=== PATIENT | male | born 1930 | race Caucasian/White ===

== ENCOUNTER 2016-11-19 10:08 | Emergency (ER) | payer MEDICARE, OTHER ==
[2016-06-30 11:01] VITALS: BMI 25.3
[~2016-11-19 10:08] MED LIST: ADOXA100 MG PO; ASPIRIN81 MG PO; B-12 DOTS500 MCG; BAYER CHEWABLE81 MG PO; CO Q-10200 MG PO; COLACE100 MG PO; COZAAR50 MG PO; EFFEXOR75 MG PO; FERREX 150 PLUS1 CAP PO; FLAGYL 500500 MG/100 PO; FLAXSEED OIL1000 MG PO; FLOMAX0.4 MG PO; GLIMEPIRIDE1 MG PO; GLIMEPIRIDE4 MG PO; HCTZ25 MG PO; HYDROCHLOROTH12.5 M1 PO; K-DUR20 MEQ PO; K-TAB10 MEQ PO; LASIX40 MG PO; LEVAQUIN 5500 MG/100 PO; NORMODYNE / TR100 MG PO; NORVASC10 MG PO; PLAVIX75 MG PO; POTASSIUM99 M1 PO; PRAVACHOL80 MG PO; PREDNISONE5 MG PO; PRILOSEC20 MG PO; PROTONIX40 MG PO; RESTORIL15 MG PO; ROCALTROL0.25 MCG PO; SILVADENE20 GM TP; VALIUM10 MG PO; VITAMIN B-1250 MCG; XANAX0.25 MG PO
[2016-11-20] MEDS ORDERED: COZAAR50 MG PO (10:31)
[2016-11-20] MEDS ORDERED: GLIMEPIRIDE2 MG PO (10:32)
[2016-11-20] MEDS ORDERED: CARDURA4 MG PO (10:34)
[2016-11-20] MEDS ORDERED: CATAPRES0.1 MG PO (10:38)
[2016-11-20] MEDS ORDERED: BAYER CHEWABLE81 MG PO (10:41)
[2016-11-20] MEDS ORDERED: JARDIANCE10 MG PO (10:41)
== END 2016-11-19 12:22 | disposition home or self-care (01) ==
LOC: D.ER 10:08
DX: S41.111A Laceration without foreign body of right upper arm, initial encounter (principal); W16.212A Fall in (into) filled bathtub causing other injury, initial encounter; Y93.89 Activity, other specified; Y92.019 Unspecified place in single-family (private) house as the place of occurrence of the external cause; S93.402A Sprain of unspecified ligament of left ankle, initial encounter; S83.92XA Sprain of unspecified site of left knee, initial encounter; I10 Essential (primary) hypertension; E11.9 Type 2 diabetes mellitus without complications; Z86.73 Personal history of transient ischemic attack (TIA), and cerebral infarction without residual deficits

== ENCOUNTER 2016-11-19 15:09 | Inpatient (IN) | payer MEDICARE, OTHER ==
[~2016-11-19] VITALS: Ht 185.4 cm; Wt 93.4 kg
--- NOTE | ~2016-11-19 | DS ---
PATIENT:JUDY MIN :[birth year] MEDICAL RECORD: [id number] DISCHARGE SUMMARY ADMISSION DATE: 11/20/16 DISCHARGE DATE: 11/23/16 ADMITTING DIAGNOSES: Syncope, diabetes, [id number] kidney disease. CONSULTANTS: Avtar Loja, nephrology; Dr. Quezada, cardiology. HOSPITAL COURSE: This is an 85-year-old white male, patient of Dr. Serra, admitted with diagnoses as outlined above. Details are well-outlined in the history of the present illness, H&P. All events, lab procedures, diagnostic testing are well documented in the records. The patient was admitted, Torres catheter placed, put on strict bed rest, Protonix for GI prophylaxis, scuds for DVT prophylaxis. He was placed on electrolyte protocol, renal diet. Echocardiogram was done. EF is 55%, [id number] aortic stenosis, mitral annular calcification, mild mitral regurg, mild tricuspid regurg. Orthostatic blood pressures were done and were okay and satisfactory. No significant drops. Initially, several blood pressure medicines put on hold do to include his ARB, HCTZ, and Norvasc. He then started climbing on the blood pressures and getting hypertensive, Dr. Loja made further adjustments. He added Apresoline, restarted the losartan, ARB and kept the Norvasc and hydrochlorothiazide discontinued. His UA was bland. No proteinuria. For diabetes mellitus, was put on Accu-Chek blood sugars and sliding scale insulin. For hyperlipidemia his statin was continued. CPK found to be normal. Stool guaiacs were negative. Hemoglobin closely followed. There was one drop of hemoglobin 6.7, we felt was erroneous, we rechecked it immediately and came back at 8.5 and then today he is 8.6. Again, stool guaiacs were negative. He is stable for dismissal home from all standpoints. His serum creatinine is at baseline. The patient is afebrile, pulse 71, respirations 16, blood pressure 165/71, O2 sat 98%. White count 8, hemoglobin 8.6, platelets are 180. Sodium 145, potassium 3.8, chloride 108, CO2 of 30, BUN 30, serum creatinine 1.8, glucose is 136, calcium is 8, phosphorus 3. Special send out labs per renal showed free kappa chains 24.88 elevated, free lambda were normal and free kappa lambda 1.9, elevated. We will defer that to nephrology. His ESR was found to be 19, renal ultrasound showed chronic disease. No obstruction or hydro. The patient admitted to Dr. Loja that he really had not been taking enough water at home and all disciplines felt that he was dehydrated when he came in. He will be dismissed home. Please refer to med rec. His new medicine is hydralazine 50 one p.o. b.i.d. He will be continued on his losartan, his Cardura and I am just giving his cardiac meds, his Plavix was restarted. Discontinued meds includes his Norvasc, potassium, hydrochlorothiazide and Catapres. DIAGNOSES: 1. Syncope due to dehydration, resolved. 2. Diabetes mellitus type 2 with hyperglycemia. 3. Uncontrolled hypertension improved. 4. Uznjg-nb-fpuqfxv kidney disease. He is at baseline chronic kidney disease stage III. 5. Anemia of chronic renal disease. DISCHARGE SUMMARY REPORT [id number] JUDY MIN 6. Hypoalbuminemia, 2.9 albumin, bland UA with no proteinuria. 7. Hyperlipidemia. Greater than 30 minutes was spent on this discharge. TRANSINT:[id number] Voice Confirmation ID: [id number] DOCUMENT ID: [id number] Dictated By: HALIE VELASCO RN I have interviewed/examined the above patient and agree with these documented findings. DIMITRI DAUGHERTY MD CC: [id number] DICTATION DATE: 11/23/16 135 EGG PROCESSING SUPERVISOR: 11/24/16 0602 DIS IN 11/23/[address] [facility] [address] [place] [address]
[2016-11-19 16:10] LABS: BASOPHILS 0.1 % (0-2); EOSINOPHILS 0.1 % (0-7); HEMATOCRIT 31.6 % (42.0-54.0); HEMOGLOBIN 10.3 g/dL (13.5-17.5); IMMATURE GRANULOCYTES 0.4 % (0-5); MCH 29.9 pg (26.0-34.0); MCHC 32.6 g/dL (31.0-37.0); MCV 91.9 fL (80.0-100.0); MEAN PLATELET VOLUME 9.4 fL (7.4-10.4); MONOCYTES 8.3 % (2-11); NEUTROPHILS 86.1 % (40-80); PLATELET COUNT 186 10x3/uL (130-400); RBC 3.44 10x6/uL (4.20-6.10); RDW 14.2 % (11.5-14.5)
[2016-11-19 16:30] LABS: ALBUMIN 2.9 g/dL (3.4-5.0); ALKALINE PHOSPHATASE 73 U/L (46-116); ALT (SGPT) 15 U/L (10-68); BILIRUBIN - TOTAL 0.63 mg/dL (0.2-1.3); CALC OSMOLALITY 298 mosm/kg (275-300); CALCIUM 8.3 mg/dL (8.5-10.1); CARBON DIOXIDE 30.9 mmol/L (21.0-32.0); CHLORIDE - SERUM 104 mmol/L (98-107); CREATININE - SERUM 3.1 mg/dL (0.6-1.3); POTASSIUM - SERUM 3.8 mmol/L (3.5-5.1); PROTEIN - SERUM 5.5 g/dL (6.4-8.2); SODIUM 140 mmol/L (136-145); UREA NITROGEN 53 mg/dL (7-18); eGFR NON AFRICAN AMERICAN 20 mL/min (90-120)
[2016-11-19 16:39] LABS: GLUCOSE 206 mg/dL (74-106)
[2016-11-19 16:42] LABS: CKMB 1.3 U/L (0.0-3.6); CREATINE KINASE 86 UL (21-232)
[2016-11-19 16:46] LABS: TROPONIN-I 0.017 ng/mL (0.000-0.060)
--- NOTE | 2016-11-19 21:20 | NUR ---
RECEIVED PT TO ROOM 2113 ALERT O X3. PT TRANSFERRED SELF FROM STRETCHER TO BED. ASSESS AND HISTORY COMPLETE. PT UNABLE TO ACCURATELY GIVE HOME MED LIST AT THIS TIME. BRENDA (PT'S GIRLFRIEND) WILL BE BRINGING AN UP TO DATE LIST IN THE AM.
[2016-11-19 21:46] VITALS: BP 166/52; Ht 185.4 cm; Wt 93.4 kg
[2016-11-19 23:33] LABS: APPEARANCE CLEAR (CLEAR); BILIRUBIN NEGATIVE (NEGATIVE); COLOR YELLOW (YELLOW); GLUCOSE NEGATIVE (NEGATIVE); KETONE NEGATIVE (NEGATIVE); LEUKOCYTE ESTERASE NEGATIVE (NEGATIVE); NITRITE NEGATIVE (NEGATIVE); PROTEIN NEGATIVE (NEGATIVE); UROBILINOGEN NORMAL (NORMAL)
[2016-11-20] VITALS (8 sets, daily range): BP systolic 109–166; BP diastolic 52–84
--- NOTE | 2016-11-20 00:29 | NUR ---
COMMUNICATIONS MAINTAINER AT BEDSIDE FOR VS. NEEDS ADDRESSED, CALL LIGHT IN REACH. WILL CONT TO MONITOR.
[2016-11-20 05:31] LABS: BASOPHILS 0.1 % (0-2); EOSINOPHILS 1.1 % (0-7); HEMATOCRIT 28.4 % (42.0-54.0); HEMOGLOBIN 9.4 g/dL (13.5-17.5); IMMATURE GRANULOCYTES 0.4 % (0-5); LYMPHOCYTES 9.7 % (15-50); MCH 30.4 pg (26.0-34.0); MCHC 33.1 g/dL (31.0-37.0); MCV 91.9 fL (80.0-100.0); MEAN PLATELET VOLUME 9.7 fL (7.4-10.4); NEUTROPHILS 78.7 % (40-80); PLATELET COUNT 186 10x3/uL (130-400); RBC 3.09 10x6/uL (4.20-6.10); RDW 14.4 % (11.5-14.5); WBC 10.2 10x3/uL (4.8-10.8)
[2016-11-20 06:06] LABS: ALBUMIN 2.6 g/dL (3.4-5.0); ANION GAP 11.4 mmol/L (8-16); BILIRUBIN - TOTAL 0.4 mg/dL (0.2-1.3); CALCIUM 8.1 mg/dL (8.5-10.1); CARBON DIOXIDE 30.1 mmol/L (21.0-32.0); CREATININE - SERUM 2.8 mg/dL (0.6-1.3); MAGNESIUM - SERUM 1.8 mg/dL (1.8-2.4); PHOSPHOROUS 4.7 mg/dL (2.5-4.9); POTASSIUM - SERUM 3.5 mmol/L (3.5-5.1); PROTEIN - SERUM 5.2 g/dL (6.4-8.2); THYROID STIMULATING HORMONE 1.77 uIU/mL (0.36-3.74)
[2016-11-20] MEDS ORDERED: COZAAR50 MG PO (10:31)
[2016-11-20] MEDS ORDERED: GLIMEPIRIDE2 MG PO (10:32)
[2016-11-20] MEDS ORDERED: CARDURA4 MG PO (10:34)
[2016-11-20] MEDS ORDERED: CATAPRES0.1 MG PO (10:38)
[2016-11-20] MEDS ORDERED: JARDIANCE10 MG PO (10:41)
[2016-11-20] MEDS ORDERED: BAYER CHEWABLE81 MG PO (10:41)
--- NOTE | 2016-11-20 11:24 | NUR ---
BILAT SCDS APPLYED.
--- NOTE | 2016-11-20 13:22 | NUR ---
DRSG CHANGED TO RIGHT ARM SKIN TEAR.
--- NOTE | 2016-11-20 19:00 | NUR ---
INITIAL ROUNDS MADE. PT SITTING UP ON SIDE OF BED WITH FAMILY IN ROOM. NO NEEDS OR C/O VOICED AT THIS TIME. CALL LIGHT IN REACH. WILL CONT TO MONITOR.
[2016-11-21] VITALS: BP 166/82
--- NOTE | 2016-11-21 00:05 | NUR ---
DIGITAL STRATEGIST AT BEDSIDE FOR VS. NEEDS ADDRESSED AT THIS TIME. CALL LIGHT IN REACH. WILL CONT TO MONITOR.
[2016-11-21 05:33] LABS: BASOPHILS 0.1 % (0-2); EOSINOPHILS 1.9 % (0-7); HEMATOCRIT 25.7 % (42.0-54.0); HEMOGLOBIN 8.3 g/dL (13.5-17.5); IMMATURE GRANULOCYTES 0.1 % (0-5); LYMPHOCYTES 11.8 % (15-50); MCHC 32.3 g/dL (31.0-37.0); MCV 92.8 fL (80.0-100.0); MEAN PLATELET VOLUME 9.3 fL (7.4-10.4); MONOCYTES 9.4 % (2-11); NEUTROPHILS 76.7 % (40-80); PLATELET COUNT 149 10x3/uL (130-400); RBC 2.77 10x6/uL (4.20-6.10); WBC 8.8 10x3/uL (4.8-10.8)
[2016-11-21 05:38] VITALS: BP 150/68
[2016-11-21 06:45] LABS: ANION GAP 10.8 mmol/L (8-16); CALCIUM 7.6 mg/dL (8.5-10.1); CARBON DIOXIDE 28.7 mmol/L (21.0-32.0); CREATININE - SERUM 2.1 mg/dL (0.6-1.3); POTASSIUM - SERUM 3.5 mmol/L (3.5-5.1)
[2016-11-21 06:47] LABS: PHOSPHOROUS 3.2 mg/dL (2.5-4.9)
[2016-11-21 07:26] LABS: ERYTHROCYTE SEDIMENTATION RATE 19 mm/hr (0-30)
--- NOTE | 2016-11-21 10:33 | NUR ---
DRSG CHANGED TO RIGHT ARM SKIN TEAR. TELEMETRY SB. IV PATENT. WILL CONT. ANNIA OF CARE.
[2016-11-21 12:00] VITALS: BP 149/65; BP 152/67; BP 157/70
--- NOTE | 2016-11-21 14:58 | NUR ---
IV ACCESS-22 GAUGE INSERTED IN LEFT FOREARM. BECCA POLK RN
--- NOTE | 2016-11-21 15:01 | NUR ---
IV RESTARTED TO LEFT FA BY TRISTON SNIDER. LINE IS PATENT.
[2016-11-21 16:28] VITALS: BP 159/79
--- NOTE | 2016-11-21 19:00 | NUR ---
INITIAL ROUNDS MADE. PT SITTING UP IN BED WATCHING TV. NO NEEDS OR C/O VOICED AT THIS TIME. CALL LIGHT IN REACH. WILL CONT TO MONITOR.
[2016-11-21 20:00] VITALS: BP 169/85
[2016-11-22] VITALS: BP 183/81
[2016-11-22 04:00] VITALS: BP 174/69
--- NOTE | 2016-11-22 04:39 | NUR ---
SVP RESEARCH AND STRATEGIC ANALYSIS AT BEDSIDE FOR VS. NEEDS ADDRESSED AT THIS TIME. CALL LIGHT IN REACH. WILL CONT TO MONITOR.
[2016-11-22 05:50] LABS: BASOPHILS 0 % (0-2); EOSINOPHILS 2.6 % (0-7); HEMATOCRIT 20.9 % (42.0-54.0); IMMATURE GRANULOCYTES 0.5 % (0-5); LYMPHOCYTES 10.7 % (15-50); MCH 29.8 pg (26.0-34.0); MCHC 32.1 g/dL (31.0-37.0); MCV 92.9 fL (80.0-100.0); MEAN PLATELET VOLUME 8.9 fL (7.4-10.4); MONOCYTES 8.7 % (2-11); NEUTROPHILS 77.5 % (40-80); PLATELET COUNT 122 10x3/uL (130-400); RBC 2.25 10x6/uL (4.20-6.10); RDW 14.3 % (11.5-14.5); WBC 7.4 10x3/uL (4.8-10.8)
[2016-11-22 06:12] LABS: % SATURATION 22 % (15-55); IRON 24 ug/dl (35-150); TOTAL IRON BIND CAPACITY 109 ug/dl (260-445); UNSAT IRON BIND CAPACITY 85 ug/dl (150-375)
[2016-11-22 06:16] LABS: HEMOGLOBIN 6.7 g/dL (13.5-17.5)
[2016-11-22 06:29] LABS: ANION GAP 12.1 mmol/L (8-16); CALCIUM 7.1 mg/dL (8.5-10.1); CARBON DIOXIDE 25.5 mmol/L (21.0-32.0); CREATININE - SERUM 1.6 mg/dL (0.6-1.3); PHOSPHOROUS 2.5 mg/dL (2.5-4.9); POTASSIUM - SERUM 3.6 mmol/L (3.5-5.1)
[2016-11-22 08:22] LABS: BASOPHILS 0.2 % (0-2); EOSINOPHILS 2.1 % (0-7); IMMATURE GRANULOCYTES 0.4 % (0-5); LYMPHOCYTES 11.9 % (15-50); MCHC 32.3 g/dL (31.0-37.0); MCV 92.9 fL (80.0-100.0); MEAN PLATELET VOLUME 9.4 fL (7.4-10.4); MONOCYTES 6.4 % (2-11); WBC 8.5 10x3/uL (4.8-10.8)
[2016-11-22 08:23] LABS: HEMATOCRIT 26.3 % (42.0-54.0); HEMOGLOBIN 8.5 g/dL (13.5-17.5); RBC 2.83 10x6/uL (4.20-6.10)
[2016-11-22 08:24] LABS: PLATELET COUNT 167 10x3/uL (130-400)
[2016-11-22 08:33] VITALS: BP 182/74
--- NOTE | 2016-11-22 10:49 | NUR ---
TELEMETRY SR. DRSGS CHANGED TO RIGHT ARM SKIN TAR. AT BS. WILL CONT. TO MONITOR NEEDS.
[2016-11-22 13:17] VITALS: BP 155/76
--- NOTE | 2016-11-22 16:00 | NUR ---
UP AMBULATING [facility]
[2016-11-22 17:30] VITALS: BP 154/74
--- NOTE | 2016-11-22 19:51 | NUR ---
RESUMED CARE OF PT, LYING IN BED WITH EYES CLOSED RESPIRATIONS EVEN AND UNLABOREDON 2LPM VIA NC. 70 SA WITH 1ST DEGREE AVB AND BBB. CALL LIGHT IN REACH. WILL CONTINUE TO MONITOR. SEE NURSE ASSESSMENT.
[2016-11-22 20:00] VITALS: BP 166/58; BP 167/71; BP 179/82
[2016-11-23] VITALS: BP 154/66
[2016-11-23 04:00] VITALS: BP 130/62
[2016-11-23 06:57] LABS: BASOPHILS 0.1 % (0-2); EOSINOPHILS 2.8 % (0-7); HEMATOCRIT 26.8 % (42.0-54.0); HEMOGLOBIN 8.6 g/dL (13.5-17.5); IMMATURE GRANULOCYTES 0.4 % (0-5); LYMPHOCYTES 10.4 % (15-50); MCH 30.1 pg (26.0-34.0); MCHC 32.1 g/dL (31.0-37.0); MCV 93.7 fL (80.0-100.0); MEAN PLATELET VOLUME 9.6 fL (7.4-10.4); MONOCYTES 9.5 % (2-11); NEUTROPHILS 76.8 % (40-80); PLATELET COUNT 180 10x3/uL (130-400); RBC 2.86 10x6/uL (4.20-6.10); RDW 13.9 % (11.5-14.5)
[2016-11-23 07:11] LABS: ANION GAP 10.6 mmol/L (8-16); CARBON DIOXIDE 30.2 mmol/L (21.0-32.0); CREATININE - SERUM 1.8 mg/dL (0.6-1.3); PHOSPHOROUS 3.1 mg/dL (2.5-4.9); POTASSIUM - SERUM 3.8 mmol/L (3.5-5.1)
--- NOTE | 2016-11-23 07:30 | NUR ---
RECEIVED PT IN BED EYES CLOSED RESP UNLABORED NAD NOTED
[2016-11-23 07:54] VITALS: BP 157/69
[2016-11-23 12:01] VITALS: BP 165/71
[2016-11-23] MEDS ORDERED: HYDRALAZINE HCL50 MG PO (13:21)
--- NOTE | 2016-11-23 14:39 | NUR ---
IV REMOVED WITH CATH INTACT. BECCA POLK RN
--- NOTE | 2016-11-23 15:13 | NUR ---
Patient Name: JUDY MIN Admission Status: ER Accout number: [id number] Admission Date: 11-20-2016 : 1930 Admission Diagnosis:ORTHOSTATIC HYPOTENSION Attending: CASSANDRA Current LOS: 3 Anticipated DC Date: 11-23-2016 Planned Disposition: Home Primary Insurance: MEDICARE A & B Discharge Planning Comments: * Is the patient Alert and Oriented? Yes 0 * How many steps to enter\exit or inside your home? 3 0 * PCP DR. SARMIENTO 0 * Pharmacy [facility] 0 * Preadmission Environment Home with Family 0 * ADLs Independent 0 * Equipment CPAP Glucometer Other 0 * Other Equipment BLOOD PRESSURE MONIITOR UNKNOWN MEDICAL EQUIIPMENT PROVIDER 0 * List name and contact numbers for known caregivers / representatives who currently or will assist patient after discharge: FABI MIN,SPOUSE, 0 * Community resources currently utilized None 0 * Please name any agencies selected above. NONE 0 * Additional services required to return to the preadmission environment? No 0 * Can the patient safely return to the preadmission environment? Yes 0 * Has this patient been hospitalized within the prior 30 days at any hospital? No 0 CM MET WITH PT AND SPOUSE IN ROOM TO DISCUSS DISCHARGE NEEDS. PT REPORTS LIVING AT HOME INDEPENDENTLY WITH SPOUSE. PT HAS ALL NEEDED MEDICAL EQUIPMENT. PT REPORTS THAT HIS CPAP HAS BEEN STOPPING AT NIGHT AND HE HAS NOT WORN IT IN OVER ONE MONTH. PT CANNOT REMEMBER THE NAME OF HIS MEDICAL EQUIPMENT PROVIDER. CM ADVISED PT AND SPOUSE TO LOOK AT THE MACHINE ONCE AT HOME, CALL THE EQUIPMENT COMPANY AND REQUEST REPAIR OR REPLACEMENT; CM FURTHER ADVISED THAT IF THE MACHINE IS NOT BEING USED, INSURANCE MAY NOT PAY FOR IT ANY LONGER. PT REPORTS UNDERSTANDING. CM DISCUSSED AVAILABILITY OF HOME HEALTH, MEDICAL EQUIPMENT AND REHAB SERVICES. PT DENIES DISCHARGE NEEDS. PT'S SPOUSE REPORTS [facility] NURSE WILL BE COMING OUT AND SPOUSE IS ABLE TO TAKE CARE OF DRESSING CHANGES. IF THEY HAVE FURTHER NEEDS AFTER GETTING HOME, THEY WILL SPEAK WITH [facility] NURSE. PT'S SPOUSE TO DRIVE HOME TODAY. IMPORTANT MESSAGE FROM MEDICARE PROVIDED AND DISCUSSED. Materials Mgmt Tech: Minh Cash
--- NOTE | 2016-11-23 15:30 | NUR ---
REVIEWED DISCHARGE INSTRUCTIONS WITH PT AND STATE UNDERSTANDING COPY GIVEN TO PT SALINE LOCK DCD TO LFA WITH IV CATHETER INTACT SITE FREE OF REDNESS OR EDEMA DISCHARGE HOME LEFT UNIT IN STABLE CONDITION WITH ALL PERSONAL BELONGINGS
[2016-11-24 07:34] LABS: SPE - A/G RATIO 1.3 (0.7-1.7); SPE - ALBUMIN 2.4 g/dL (2.9-4.4); SPE - ALPHA-1 GLOBULIN 0.2 g/dL (0.0-0.4); SPE - ALPHA-2 GLOBULIN 0.6 g/dL (0.4-1.0); SPE - BETA GLOBULIN 0.6 g/dL (0.7-1.3); SPE - GAMMA GLOBULIN 0.5 g/dL (0.4-1.8); SPE - M-SPIKE Not Observed g/dL (Not Observed); SPE - TOTAL PROTEIN 4.3 g/dL (6.0-8.5)
--- NOTE | 2016-11-24 08:26 | CN ---
PATIENT NAME:JUDY MIN MEDICAL RECORD: [id number] : [birth year] LOCATION:D.[facility] D.2114 ADMIT DATE: 11/20/16 ACCOUNT: [id number] CONSULTING PHYSICIAN: LISA DOWNS MD REFERRING PHYSICIAN: PATRIZIA CASH MD DATE OF CONSULTATION: 11/20/2016 HISTORY OF PRESENT ILLNESS: An 85-year-old gentleman with a known history of coronary artery disease, status post intervention. He has a history of hypertension, diabetes mellitus, suspected renal insufficiency, admitted with 2 episodes of orthostatic hypotension, has been an ongoing issue. By his report, he does not hydrate very well. He is on vasodilator as well as diuretics as home medication. We are asked to see him concerning his cardiovascular status. PAST MEDICAL HISTORY: 1. History of coronary artery disease. 2. Hypertension. 3. Hyperlipidemia. 4. Chronic renal insufficiency. ALLERGIES: None known. SOCIAL HISTORY: Lives here in [place]. Nonsmoker. He takes care of his ADLs. He does try to walk on a regular basis. MEDICATIONS: Typically include Flomax 0.4 q. day, Plavix 75 q. day, amlodipine 10 q. day, losartan 50 q. day, pravastatin 80 q. day, Xanax 0.25 p.r.n., Valium 10 mg p.r.n., ____ HCTZ 25 q. day, potassium supplementation. PHYSICAL EXAMINATION: GENERAL: Pleasant gentleman in no acute distress, appears stated age. VITAL SIGNS: Blood pressure recording shows a 50-mm drop from lying to standing with a pulse of 89. HEENT: Normocephalic, atraumatic. NECK: No JVD or bruit. HEART: Regular, II/ systolic ejection murmur. LUNGS: Prolonged expiratory phase. ABDOMEN: Soft, nontender. EXTREMITIES: Pulses 2+ with no edema. DIAGNOSTIC DATA: ECG shows no acute change. IMPRESSION: Classic orthostasis, appears dry on his lab, agree with hydration. May need to consider ProAmatine at some point as well as support hose. Further recommendations based on above. TRANSINT:[id number] Voice Confirmation ID: [id number] DOCUMENT ID: [id number] CONSULT REPORT [id number] NORMAN MINUR Adrien LISA DOWNS MD at 0826 CC: [id number] DICTATION DATE: 11/20/16 0904 ELEVATOR TENDER: 11/20/16 1515 DIS IN 11/23/16 [place] [id number] [place] [address]
--- NOTE | 2016-11-24 08:26 | EC ---
PATIENT:JUDY MIN DATE OF SERVICE: 11/20/16 SEX: M MEDICAL RECORD: [id number] DATE OF : [birth year] LOCATION:D. D.211 AGE OF PATIENT: 85 ADMISSION DATE: 11/20/16 REFERRING PHYSICIAN: INTERPRETING PHYSICIAN: LISA DOWNS MD ECHOCARDIOGRAM REPORT ECHO CHARGES 4 ECHO COMPLETE CLINICAL DIAGNOSIS: SYNCOPE ECHOCARDIOGRAPHIC MEASUREMENTS (adult normal given) AC root (d.<3.7cm) 3.2 LV Septum d (<1.2 cm> 1.7 Valve Excursion 0.6 LV Septum (systole) 2.8 Left Atria (s.<4.0cm> 4.2 LVPW d(<1.2cm) 1.5 RV (d.<2.3cm) 3.0 LVPW (sytole) 2.3 LV diastole(<5.6CM) 5.7 MV E-F(>70mm/sec) LV systole 2.6 LVOT Diameter 1.7 MV exc.(>10mm) Est.ejection fraction (50-75%) Pericardial Effusion N DOPPLER: LVIT A 135 E 76.0 LA RVSP 44.0 LVOT 148 AOP1/2T Asc. Ao 430 RVOT 108 RA PA 171 AV Gradient Peak 74.0 AV Mean 37.0 AV Area 0.9 MV Gradient Peak 6.1 MV Mean 2.0 MV Area COMMENTS: Nuclear Plant Construction Worker: Jj WESTOE Cylinder Die Machine Helper:Gwen Quezada TAPE# PACS DATE OF SERVICE: 11/20/2016 Adequate 2D echo, color flow and spectral Doppler, and M-Mode. LVH present. LV internal dimensions are normal. Wall motion is normal. EF is greater than or equal to 55%. 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 Calculated aortic valve area of 0.9 cm-squared, putting this in mild to severe range. Left atrium is minimally dilated to 5.2 cm. Mitral valve shows mitral annular calcification. Mild MR. Right-sided chamber is grossly normal. Mild TR. ECHOCARDIOGRAM REPORT [id number] JUDY MIN TRANSINT:[id number] Voice Confirmation ID: [id number] DOCUMENT ID: [id number] LISA DOWNS MD at 0138 CC: [id number] DICTATION DATE: 11/20/16 1219 SPECIAL NEEDS TEACHER: 11/20/16 1350 DIS IN 11/23/16 [place] [id number] [place] [id number]
== END 2016-11-23 15:30 | disposition home or self-care (01) | DRG 312 ==
LOC: D.ER 15:09 → D.M2 17:30 → OBSVTIME 17:30 → D.M2 17:30
PROVIDERS: Emergency Medicine; Internal Medicine Nephrology; Nurse Practitioner Acute Care; ADMIT Family Medicine Adult Medicine
PROC: 0T9B70Z Drainage of Bladder with Drainage Device, Via Natural or Artificial Opening (ICD-10-PCS; principal; 2016-11-19)
DX: R55 Syncope and collapse (principal); N17.9 Acute kidney failure, unspecified; E11.22 Type 2 diabetes mellitus with diabetic chronic kidney disease; I12.9 Hypertensive chronic kidney disease with stage 1 through stage 4 chronic kidney disease, or unspecified chronic kidney disease; N18.3 Chronic kidney disease, stage 3 (moderate); I25.10 Atherosclerotic heart disease of native coronary artery without angina pectoris; Z95.5 Presence of coronary angioplasty implant and graft; E78.5 Hyperlipidemia, unspecified; E11.65 Type 2 diabetes mellitus with hyperglycemia; I08.3 Combined rheumatic disorders of mitral, aortic and tricuspid valves; D63.1 Anemia in chronic kidney disease; E86.0 Dehydration

== ENCOUNTER 2016-11-30 19:03 | Inpatient (IN) | payer MEDICARE, OTHER ==
[~2016-11-30] VITALS: Ht 185.4 cm; Wt 88.8 kg
[~2016-11-30 19:03] MED LIST changes: +CARDURA4 MG PO; +CATAPRES0.1 MG PO; +GLIMEPIRIDE2 MG PO; +HYDRALAZINE HCL50 MG PO; +JARDIANCE10 MG PO; +VALIUM5 MG PO
[2016-11-30 20:34] LABS: BASOPHILS 0.1 % (0-2); EOSINOPHILS 1.9 % (0-7); HEMATOCRIT 27.3 % (42.0-54.0); HEMOGLOBIN 8.8 g/dL (13.5-17.5); IMMATURE GRANULOCYTES 0.3 % (0-5); LYMPHOCYTES 9.2 % (15-50); MCH 29.8 pg (26.0-34.0); MCHC 32.2 g/dL (31.0-37.0); MCV 92.5 fL (80.0-100.0); MEAN PLATELET VOLUME 8.8 fL (7.4-10.4); MONOCYTES 6.5 % (2-11); PLATELET COUNT 273 10x3/uL (130-400); RBC 2.95 10x6/uL (4.20-6.10); RDW 14.1 % (11.5-14.5); WBC 9.1 10x3/uL (4.8-10.8)
[2016-11-30 20:56] LABS: ALBUMIN 2.6 g/dL (3.4-5.0); ANION GAP 13.6 mmol/L (8-16); BILIRUBIN - TOTAL 0.95 mg/dL (0.2-1.3); CALCIUM 8.5 mg/dL (8.5-10.1); CARBON DIOXIDE 26.3 mmol/L (21.0-32.0); CREATININE - SERUM 2.2 mg/dL (0.6-1.3); POTASSIUM - SERUM 3.9 mmol/L (3.5-5.1)
--- NOTE | 2016-11-30 22:50 | NUR ---
RECEIVED PT TO ROOM VIA WHEEL CHAIR. ALERT AND ORIENTED. NO SIGNS OF DISTRESS NOTED. GIVEN SANDWICH AND MILK AT PT REQUEST. CALLED HALIE VELASCO AND RESTARTED HOME DOSE VALIUM. NO OTHER NEEDS VOICED. BED LOW. CALL LIGHT IN REACH
[2016-11-30] MEDS ORDERED: COZAAR50 MG PO (22:52)
[2016-11-30] MEDS ORDERED: HYDRALAZINE HCL50 MG PO (22:53)
[2016-11-30 23:06] VITALS: BP 146/93; BMI 25.1
[2016-11-30 23:43] VITALS: BP 146/93
[2016-12-01 04:00] VITALS: BP 135/74
--- NOTE | 2016-12-01 07:20 | NUR ---
PATIENT RECEIVED ALERT IN LOW WALKER POSITION. RESPIRATIONS EVEN AND UNLABORED. SIDE RAILS UP X2. BED IN LOW POSITION. CALL LIGHT IN REACH. DENIES NEEDS.
[2016-12-01 07:51] VITALS: BP 162/75
--- NOTE | 2016-12-01 08:45 | NUR ---
PATIENT ALERT IN BED WITH FAMILY PRESENT. NO SIGNS OF DISTRESS NOTED. SCDS ON BILATERALLY. USE EXPLAINED. STATES UNDERSTANDING. SIDE RAILS UP X2. BED IN LOW POSITION. CALL LIGHT IN REACH.
[2016-12-01 10:07] LABS: BASOPHILS 0.2 % (0-2); EOSINOPHILS 2.5 % (0-7); HEMATOCRIT 24.8 % (42.0-54.0); IMMATURE GRANULOCYTES 0.3 % (0-5); LYMPHOCYTES 7.6 % (15-50); MCH 30.1 pg (26.0-34.0); MCHC 32.3 g/dL (31.0-37.0); MCV 93.2 fL (80.0-100.0); MEAN PLATELET VOLUME 8.2 fL (7.4-10.4); MONOCYTES 8.1 % (2-11); NEUTROPHILS 81.3 % (40-80); RBC 2.66 10x6/uL (4.20-6.10); RDW 14.3 % (11.5-14.5)
[2016-12-01 10:08] LABS: PLATELET COUNT 197 10x3/uL (130-400); WBC 6.3 10x3/uL (4.8-10.8)
[2016-12-01 10:26] LABS: ALBUMIN 2.2 g/dL (3.4-5.0); ANION GAP 10.6 mmol/L (8-16); BILIRUBIN - TOTAL 0.8 mg/dL (0.2-1.3); CALCIUM 8.2 mg/dL (8.5-10.1); CREATININE - SERUM 2.1 mg/dL (0.6-1.3); POTASSIUM - SERUM 3.6 mmol/L (3.5-5.1); PROTEIN - SERUM 5.2 g/dL (6.4-8.2)
[2016-12-01] MEDS ORDERED: COLACE100 MG PO (11:00)
--- NOTE | 2016-12-01 11:37 | NUR ---
ALERT IN BED. NO SIGNS OF DISTRESS NOTED. ACCU CHECK 122. NO INSULIN PER SLIDING SCALE. AT BEDSIDE. SIDE RAILS UP X2. BED IN LOW POSITION. CALL LIGHT IN REACH.
[2016-12-01 12:00] VITALS: BP 153/84
[2016-12-01 13:43] VITALS: Ht 185.4 cm; Wt 88.8 kg
--- NOTE | 2016-12-01 13:47 | NUR ---
PATIENT ALERT IN BED. NO SIGNS OF DISTRESS NOTED. SCHEDULED MEDICATION ADMINISTERED. DENIES NEEDS. SIDE RAILS UP X2. BED IN LOW POSITION. CALL LIGHT IN REACH.
--- NOTE | 2016-12-01 14:23 | NUR ---
IV TO LEFT AC PATENT. FLUSHES EASY. NO REDNESS OR INFLAMMATION. IVF INITIATED. YELLOW FALL RISK BAND PLACED ON PATIENT. SCDS ON BILATERALLY. SIDE RAILS UP X2. BED IN LOW POSITION. CALL LIGHT IN REACH.
[2016-12-01 15:37] VITALS: BP 121/79
--- NOTE | 2016-12-01 16:27 | NUR ---
ACCU CHECK 147. NO INSULIN PER SLIDING SCALE. DENIES NEEDS. SIDE RAILS UP X2. BED IN LOW POSITION. CALL LIGHT IN REACH.
--- NOTE | 2016-12-01 19:30 | NUR ---
PT RECEIVED RESTING IN BED, WATCHING TELEVISION. PT DENIES PAIN OR NEEDS AT THIS TIME. CALL LIGHT AND H20 IN PT REACH. BED IN LOW POSITION. SIDE RAILS UP X2.
[2016-12-01 20:00] VITALS: BP 175/73
--- NOTE | 2016-12-01 21:00 | NUR ---
PT IV PULLED OUT. PRESSURE APPLIED, DRESSING APPLIED. IV RESITED TO LEFT UPPER ARM. IV PATENT.
[2016-12-02] VITALS: BP 166/70
--- NOTE | 2016-12-02 03:24 | NUR ---
PT IS ASLEEP WITH EASY RESPIRATIONS AND NO DISTRESS NOTED. THERE IS NO O2 IN PLACE AND THE URINAL IS AT THE BEDSIDE. THE BED IS LOW, RAILS UP X'S 2 WITH THE CALL LIGHT AT HAND.
[2016-12-02 04:00] VITALS: BP 156/79
[2016-12-02 05:11] LABS: BASOPHILS 0.1 % (0-2); EOSINOPHILS 2.3 % (0-7); HEMATOCRIT 25.1 % (42.0-54.0); IMMATURE GRANULOCYTES 0.4 % (0-5); LYMPHOCYTES 7.9 % (15-50); MCH 29.6 pg (26.0-34.0); MCHC 31.9 g/dL (31.0-37.0); MEAN PLATELET VOLUME 8.5 fL (7.4-10.4); MONOCYTES 8.7 % (2-11); NEUTROPHILS 80.6 % (40-80); RDW 14.4 % (11.5-14.5); WBC 7.3 10x3/uL (4.8-10.8)
[2016-12-02 05:12] LABS: PLATELET COUNT 256 10x3/uL (130-400)
[2016-12-02 05:24] LABS: ALBUMIN 2.3 g/dL (3.4-5.0); ANION GAP 9.4 mmol/L (8-16); BILIRUBIN - TOTAL 0.9 mg/dL (0.2-1.3); CALCIUM 8.2 mg/dL (8.5-10.1); CARBON DIOXIDE 27.2 mmol/L (21.0-32.0); CREATININE - SERUM 1.9 mg/dL (0.6-1.3); POTASSIUM - SERUM 3.6 mmol/L (3.5-5.1); PROTEIN - SERUM 5.2 g/dL (6.4-8.2)
--- NOTE | 2016-12-02 07:25 | NUR ---
PATIENT RECEIVED ALERT IN LEFT LATERAL POSITION. RESPIRATIONS EVEN AND UNLABORED. SIDE RAILS UP X1. BED IN LOW POSITION. CALL LIGHT IN REACH. DENIES NEEDS.
[2016-12-02 08:05] VITALS: BP 146/80
--- NOTE | 2016-12-02 08:15 | NUR ---
PATIENT SITTING UP ON SIDE OF BED ALERT. NO SIGNS OF DISTRESS NOTED. SCHEDULED MEDICATION ADMINISTERED. SIDE RAILS UP X2. BED IN LOW POSITION. CALL LIGHT IN REACH.
[2016-12-02 10:13] LABS: FOLATE (FOLIC ACID) - SERUM 11.4 ng/mL (>3.0)
--- NOTE | 2016-12-02 12:06 | NUR ---
ACCU CHECK 165. INSULIN PER SLIDING SCALE. DENIES NEEDS. SIDE RAILS UP X2. BED IN LOW POSITION. CALL LIGHT IN REACH.
[2016-12-02 12:38] VITALS: BP 176/75
--- NOTE | 2016-12-02 14:23 | NUR ---
MVI INITIATED ORDERED. IV TO LEFT UPPER PATENT. FLUSHES EASY. NO REDNESS OR INFLAMMTION NOTED. DENIES NEEDS. AT BEDSIDE. SIDE RAILS UP X2. BED IN LOW POSITION. CALL LIGHT IN REACH.
--- NOTE | 2016-12-02 16:00 | NUR ---
ACCU CHECK 125. NO INSULIN PER SLIDING SCALE. DENIES NEEDS. BED IN LOW POSITION. CALL LIGHT IN REACH.
[2016-12-02 16:01] VITALS: BP 171/81
--- NOTE | 2016-12-02 19:57 | NUR ---
REC'D. IN BED. LYING ON RT. SIDE. EYES CLOSED RESP. DEEP AND EVEN.WILL CONTINUE TO MONITOR FOR ANY CHGES. AND [facility].
[2016-12-02 20:00] VITALS: BP 191/89
--- NOTE | 2016-12-02 22:56 | NUR ---
PT IS ASLEEP WITH NO DISTRESS NOTED. NO O2 GOING AND RESPIRATIONS ARE EVEN AND UNLABORED. THE BED IS LOW, RAILS UP X'S 2 WITH THE CALL LIGHT AT HAND.
[2016-12-03] VITALS (21 sets, daily range): BP systolic 145–185; BP diastolic 61–101
[2016-12-03 06:15] LABS: BASOPHILS 0.2 % (0-2); EOSINOPHILS 1.8 % (0-7); HEMATOCRIT 24.3 % (42.0-54.0); HEMOGLOBIN 7.7 g/dL (13.5-17.5); IMMATURE GRANULOCYTES 0.5 % (0-5); LYMPHOCYTES 9.4 % (15-50); MCH 29.5 pg (26.0-34.0); MCHC 31.7 g/dL (31.0-37.0); MCV 93.1 fL (80.0-100.0); MEAN PLATELET VOLUME 8.7 fL (7.4-10.4); MONOCYTES 8.6 % (2-11); NEUTROPHILS 79.5 % (40-80); PLATELET COUNT 273 10x3/uL (130-400); RBC 2.61 10x6/uL (4.20-6.10); RDW 14.6 % (11.5-14.5); WBC 8.4 10x3/uL (4.8-10.8)
[2016-12-03 06:34] LABS: ALBUMIN 2.1 g/dL (3.4-5.0); ANION GAP 9.1 mmol/L (8-16); BILIRUBIN - TOTAL 0.65 mg/dL (0.2-1.3); CALCIUM 7.9 mg/dL (8.5-10.1); CARBON DIOXIDE 27.7 mmol/L (21.0-32.0); POTASSIUM - SERUM 3.8 mmol/L (3.5-5.1); PROTEIN - SERUM 5.1 g/dL (6.4-8.2)
--- NOTE | 2016-12-03 07:10 | NUR ---
PATIENT RECEIVED IN LOW WALKER POSITION RESTING WITH EYES CLOSED. RESPIRATIONS EVEN AND UNLABORED. SIDE RAILS UP X1. BED IN LOW POSITION. CALL LIGHT IN REACH.
--- NOTE | 2016-12-03 08:50 | NUR ---
SITTING UP ON SIDE OF BED EATING BREAKFAST. TOLERATING WELL. BED IN LOW POSITION. CALL LIGHT IN REACH.
--- NOTE | 2016-12-03 11:11 | NUR ---
ACCU CHECK 134. NO INSULIN PER SLIDING SCALE. DENIES NEEDS. SIDE RAILS UP X2. BED IN LOW POSITION. CALL LIGHT IN REACH.
--- NOTE | 2016-12-03 15:26 | NUR ---
PRE MEDS ADMINISTERED PRIOR TO PRBC TRANSFUSION
--- NOTE | 2016-12-03 16:20 | NUR ---
FIRST UNIT PRBC INITIATED PER ORDER. TRANSFUSING TO LEFT UPPER ARM IV WITHOUT DIFFICULTY. VITAL SIGNS STABLE. SIDE RAILS UP X1. BED IN LOW POSITION. CALL LIGHT IN REACH. FAMILY PRESENT.
--- NOTE | 2016-12-03 17:45 | NUR ---
PATIENT SITTING UP ON SIDE OF BED EATING DINNER. PRBC CONTINUE TO TRANSFUSE WITHOUT DIFFICULTY. VITAL SIGNS STABLE. BED IN LOW POSITION. CALL LIGHT IN REACH.
--- NOTE | 2016-12-03 19:58 | NUR ---
PT WAS MEDICATED AT THIS TIME WITH LASIX FOLLOW COMPLETION OF THE FIRST UNIT OF PRBC PER ORDERS AT THIS TIME. C/L IN REACH AT BEDSIDE.
--- NOTE | 2016-12-03 20:26 | NUR ---
INITIATED PATIENT'S SECOND UNIT OF BLOOD. PATIENT RESTING IN BED WITH NO SIGNS OF DISTRESS AND VITALS ARE WDL. PATIENT'S BED IN LOWEST POSITION AND CALL LIGHT WITHIN REACH. ENCOURAGED THE PATIENT TO CALL IF HE HAS NEEDS.
[2016-12-04] VITALS (7 sets, daily range): BP systolic 149–186; BP diastolic 72–88
[2016-12-04 05:47] LABS: BASOPHILS 0 % (0-2); EOSINOPHILS 1.6 % (0-7); IMMATURE GRANULOCYTES 0.7 % (0-5); LYMPHOCYTES 7.1 % (15-50); MCH 28.9 pg (26.0-34.0); MEAN PLATELET VOLUME 8.7 fL (7.4-10.4); NEUTROPHILS 82.6 % (40-80); PLATELET COUNT 291 10x3/uL (130-400); RDW 15.5 % (11.5-14.5); WBC 10.2 10x3/uL (4.8-10.8)
[2016-12-04 05:58] LABS: HEMATOCRIT 29.7 % (42.0-54.0); HEMOGLOBIN 9.5 g/dL (13.5-17.5); MCV 90.3 fL (80.0-100.0); RBC 3.29 10x6/uL (4.20-6.10)
[2016-12-04 06:06] LABS: ALBUMIN 2.3 g/dL (3.4-5.0); ANION GAP 11.6 mmol/L (8-16); BILIRUBIN - TOTAL 1.2 mg/dL (0.2-1.3); CALCIUM 7.8 mg/dL (8.5-10.1); CARBON DIOXIDE 26.9 mmol/L (21.0-32.0); POTASSIUM - SERUM 3.5 mmol/L (3.5-5.1); PROTEIN - SERUM 5.5 g/dL (6.4-8.2)
[2016-12-04 07:50] LABS: APTT 52.9 SECONDS (22.8-39.4); INR 1.24 (0.85-1.17); PROTIME 15.5 SECONDS (11.6-15.0)
--- NOTE | 2016-12-04 09:02 | NUR ---
REPORT REC'D FROM TYLOR CAMPOS. ROOM READY AND AWAITING PT ARRIVAL.
--- NOTE | 2016-12-04 09:17 | NUR ---
PT RETURNED TO ROOM FROM PROCEDURE. RESTING IN BED WITH EYES CLOSED. ALERT AND OREINTED X4. NO COMPLAINTS. DRESSING CDI. BED LOW, CALL LIGHT IN REACH, LAYING FLAT. CPOC.
--- NOTE | 2016-12-04 11:36 | NUR ---
Patient Name: JUDY MIN Admission Status: ER Accout number: [id number] Admission Date: 11-30-2016 : 1930 Admission Diagnosis:CELLULITIS OF RIGHT UPPER LIMB Attending: MIRLANDE Current LOS: 4 Anticipated DC Date: 12-07-2016 Planned Disposition: Home Primary Insurance: MEDICARE A & B Discharge Planning Comments: CM MET WITH PATIENT AND RUBBER MIXER (MARIA FERNANDA) REGARDING D/C NEEDS AND PLANS. PATIENT STATED MARIA FERNANDA WILL DRIVE HIM HOME AT DISCHARGE AND IT IS SAFE. PATIENT HAS NO STEPS TO ENTER HOME AND HAS 2 STEPS IN HOME W/RAILING. PATIENT STATED HE IS INDEPENDENT WITH HIS CARE AND HAS A CANE, C-PAP, WALKER, BUILT IN SHOWER CHAIR, URINAL, AND GLUCOMETER AT HOME (DOES NOT CHECK BS). PATIENTS PCP IS DR. SARMIENTO AND [facility]ACY IS [facility] PATIENT IS REFUSING HOME HEALTH AT THIS TIME. CM WILL CONTINUE TO FOLLOW PATIENT WITH D/C NEEDS AND PLANS. PCP DR. TORSTEN PAULINO AT [facility] [phone] MARIA FERNANDA MACIAS (RUBBER MIXER-LIVES WITH PATIENT) [phone] OR [phone] SANDI LIZETTEEMILEE (DAUGHTER) [phone] Accounts Payable Analyst: Elena Chase Is the patient Alert and Oriented? Yes 0 * How many steps to enter\exit or inside your home? 2 0 * PCP DR. SARMIENTO 0 * [facility]acy [facility] 0 * Preadmission Environment Home with Family 0 * ADLs Independent 0 * Equipment Cane Glucometer Shower Chair Walker 0 * Other Equipment URINAL 0 * List name and contact numbers for known caregivers / representatives who currently or will assist patient after discharge: MARIA FERNANDA MACIAS (FRIEND) [phone] OR [phone] SANDIMary MONCADA (DAUGHTER) [phone] 0 * Community resources currently utilized None 0 * Additional services required to return to the preadmission environment? Yes 0 * Can the patient safely return to the preadmission environment? Yes 0 * Has this patient been hospitalized within the prior 30 days at any hospital? No 0 Grand Total: 0
--- NOTE | 2016-12-04 12:13 | NUR ---
PT RESTING IN BED WITH IN ROOM. AAOX4. CURRENT FSBS 102. NO COVERAGE NEEDED PER SS.
--- NOTE | 2016-12-04 13:36 | NUR ---
AWAKE AND ALERT. ORIENTED X3. NO C/O AT THIS TIME[facility] SWELLING TO RIGHT ARM DOWN ALOT PER PATIENT. DENIES NEEDS.
--- NOTE | 2016-12-04 19:10 | NUR ---
PT SITTING UP IN BED WATCHING TV, ASSESSMENT COMPLETED, NO ACUTE DISTRESS NOTED, PT REPORTS "KNOCKING SCAB OFF" OF AREA ON R UPPER ARM, TRACE BLEEDING NOTED, DRY DSG APPLIED, SR'S UP, CL IN REACH, WILL MONITOR
--- NOTE | 2016-12-04 20:43 | NUR ---
MEDS GIVEN PER MAR, ROWDY WELL, DENIES NEEDS AT THIS TIME, CL IN REACH
--- NOTE | 2016-12-04 23:11 | NUR ---
RESTING WITH EYES CLOSED, RESP WITH EASE, NO DISTRESS NOTED, FALL PRECAUTIONS IN PLACE, CL IN REACH
[2016-12-05] VITALS: BP 162/82
[2016-12-05 04:00] VITALS: BP 126/89
[2016-12-05 06:11] LABS: BASOPHILS 0.1 % (0-2); EOSINOPHILS 3.6 % (0-7); HEMATOCRIT 30.9 % (42.0-54.0); HEMOGLOBIN 9.7 g/dL (13.5-17.5); IMMATURE GRANULOCYTES 0.9 % (0-5); LYMPHOCYTES 10.2 % (15-50); MCH 28.9 pg (26.0-34.0); MCHC 31.4 g/dL (31.0-37.0); MEAN PLATELET VOLUME 8.8 fL (7.4-10.4); MONOCYTES 8.1 % (2-11); NEUTROPHILS 77.1 % (40-80); PLATELET COUNT 321 10x3/uL (130-400); RBC 3.36 10x6/uL (4.20-6.10); RDW 15.7 % (11.5-14.5); WBC 9.3 10x3/uL (4.8-10.8)
[2016-12-05 06:36] LABS: ALBUMIN 2.2 g/dL (3.4-5.0); BILIRUBIN - TOTAL 0.8 mg/dL (0.2-1.3); CALCIUM 7.6 mg/dL (8.5-10.1); CARBON DIOXIDE 25.8 mmol/L (21.0-32.0)
[2016-12-05 06:37] LABS: ANION GAP 13.4 mmol/L (8-16); POTASSIUM - SERUM 4.2 mmol/L (3.5-5.1)
[2016-12-05 08:18] VITALS: BP 185/92
[2016-12-05 08:22] LABS: ERYTHROPOIETIN 76.6 mIU/mL (2.6-18.5)
--- NOTE | 2016-12-05 10:26 | NUR ---
PT SEEN FOR MENTAL HEALTH DIRECTOR NOTE. NO COMPLAINTS OF SOB NOTED OR VOICED. LUNGS CLEAR. EDEMA 2+ NOTED TO BILAT FEET. WANTS TO AMBULATE IN [place] WITH SPOUSE-NON SKID SLIPPER SOCKS APPLIED TO FEET
[2016-12-05 16:28] VITALS: BP 172/79
--- NOTE | 2016-12-05 17:03 | NUR ---
CURRENT FSBS 118. NO COVERAGE NEEDED PER SS. PT RESTING IN BED ON SIDE.
--- NOTE | 2016-12-05 19:00 | NUR ---
PATIENT RESTING WITH EYES CLOSED ON LEFT SIDE. HOB 10 DEGREES. AROUSES TO VOICE. ORIENTED X4. RR EVEN AND UNLABORED. 0 S/S OF DISTRESS. DENIES PAIN AT THIS TIME. IV TO LEFT FA S/L WITH NO REDNESS OR SWELLING. DRESSING TO RIGHT ELBOW CDI. DRESSING TO LOWER BACK CDI. TELEMETRY ON. SCD'S IN ROOM BUT OFF. SRX2. BED LOW. CALL LIGHT WITHIN REACH.
[2016-12-05 20:00] VITALS: BP 148/85
--- NOTE | 2016-12-05 21:30 | NUR ---
NIGHTTIME MEDS GIVEN. PATIENT'S BS 160 BUT REFUSED INSULIN. REMOVED DRESSING TO ELBOW PER PATIENT REQUEST. NOT BLEEDING AT THIS TIME. LEFT OPEN TO AIR.
[2016-12-06] VITALS: BP 165/88
[2016-12-06 04:00] VITALS: BP 183/83
[2016-12-06 05:58] LABS: BASOPHILS 0.1 % (0-2); EOSINOPHILS 5.5 % (0-7); HEMATOCRIT 30.6 % (42.0-54.0); HEMOGLOBIN 9.9 g/dL (13.5-17.5); IMMATURE GRANULOCYTES 0.7 % (0-5); LYMPHOCYTES 10.6 % (15-50); MCH 29.6 pg (26.0-34.0); MCHC 32.4 g/dL (31.0-37.0); MCV 91.3 fL (80.0-100.0); MEAN PLATELET VOLUME 8.7 fL (7.4-10.4); NEUTROPHILS 74.1 % (40-80); PLATELET COUNT 318 10x3/uL (130-400); RBC 3.35 10x6/uL (4.20-6.10); RDW 15.3 % (11.5-14.5); WBC 7.5 10x3/uL (4.8-10.8)
[2016-12-06 06:20] LABS: ALBUMIN 2.1 g/dL (3.4-5.0); ANION GAP 10.7 mmol/L (8-16); BILIRUBIN - TOTAL 0.7 mg/dL (0.2-1.3); CALCIUM 7.9 mg/dL (8.5-10.1); CREATININE - SERUM 1.9 mg/dL (0.6-1.3); POTASSIUM - SERUM 3.7 mmol/L (3.5-5.1); PROTEIN - SERUM 5.4 g/dL (6.4-8.2)
[2016-12-06 08:07] VITALS: BP 168/81
--- NOTE | 2016-12-06 09:14 | NUR ---
AM MEDS ADMINISTERED. CALL LIGHT IN REACH.
[2016-12-06] MEDS ORDERED: RIMACTANE300 MG PO (11:55)
[2016-12-06] MEDS ORDERED: FLORAJEN3 CAPS460 MG PO (11:55)
[2016-12-06] MEDS ORDERED: BACTRIM DS TABL1 TAB PO (11:55)
--- NOTE | 2016-12-06 12:42 | NUR ---
CM REASSESSMENT NOTE: PATIENT IS DISCHARGING HOME TODAY-GIRLFRIEND DRIVING HIM. PATIENT REFUSED HOME HEALTH AND HAD NO OTHER NEEDS FOR D/C.
[2016-12-06 13:03] VITALS: BP 187/82
--- NOTE | 2016-12-06 14:55 | NUR ---
D/C IV WITH CATHETER INTACT. DISCHARGE INSTRUCTIONS COMPLETED WITH PATIENT. PATIENT VERBALIZED UNDERSTANDING AND DENIES QUESTIONS. PATIENT LEFT VIA WHEELCHAIR WITH VOLUNTEER STAFF AND PATIENT'S FRIEND.
== END 2016-12-06 14:55 | disposition home or self-care (01) | DRG 989 ==
LOC: D.ER 19:03 → D.MS 21:52
PROVIDERS: Emergency Medicine; General Practice; Internal Medicine Hematology & Oncology; ADMIT Family Medicine
PROC: 0QB53ZX Excision of Left Acetabulum, Percutaneous Approach, Diagnostic (ICD-10-PCS; 2016-12-04)
PROC: 07DR3ZX Extraction of Iliac Bone Marrow, Percutaneous Approach, Diagnostic (ICD-10-PCS; principal; 2016-12-04 08:40)
DX: L03.113 Cellulitis of right upper limb (principal); E78.5 Hyperlipidemia, unspecified; I12.9 Hypertensive chronic kidney disease with stage 1 through stage 4 chronic kidney disease, or unspecified chronic kidney disease; E11.22 Type 2 diabetes mellitus with diabetic chronic kidney disease; E11.65 Type 2 diabetes mellitus with hyperglycemia; N18.3 Chronic kidney disease, stage 3 (moderate); D63.1 Anemia in chronic kidney disease; I25.10 Atherosclerotic heart disease of native coronary artery without angina pectoris; Z95.5 Presence of coronary angioplasty implant and graft

== ENCOUNTER → 2017-02-06 13:53 | Outpatient (CLI) | payer MEDICARE, OTHER ==
[2016-12-01 13:43] VITALS: BMI 25.0
[~2017-02-06 13:53] MED LIST changes: +BACTRIM DS TABL1 TAB PO; +FLORAJEN3 CAPS460 MG PO; +RIMACTANE300 MG PO
== END | disposition home or self-care (01) ==
LOC: D.US 13:53
DX: E11.22 Type 2 diabetes mellitus with diabetic chronic kidney disease (principal); M79.669 Pain in unspecified lower leg

== ENCOUNTER 2017-03-17 11:06 | Inpatient (IN) | payer MEDICARE, OTHER ==
[2017-03-17] VITALS (42 sets, daily range): BP systolic 84–191; BP diastolic 56–117; BMI 24.4
[~2017-03-17] VITALS: Ht 185.4 cm; Wt 84.0 kg
--- NOTE | ~2017-03-17 | EC ---
PATIENT:JUDY MIN DATE OF SERVICE: 03/17/17 SEX: M MEDICAL RECORD: [id number] DATE OF : [birth year] LOCATION:[facility] AGE OF PATIENT: 86 ADMISSION DATE: 03/17/17 REFERRING PHYSICIAN: INTERPRETING PHYSICIAN: AFSANEH DAVIS MD ECHOCARDIOGRAM REPORT ECHO CHARGES 4 ECHO COMPLETE CLINICAL DIAGNOSIS: [place] HX OF CAD/STENTS/HTN/DM ECHOCARDIOGRAPHIC MEASUREMENTS (adult normal given) AC root (d.<3.7cm) 3.5 cm LV Septum d (<1.2 cm> 1.7 cm Valve Excursion 1.6 cm LV Septum (systole) 1.8 cm Left Atria (s.<4.0cm> 4.3 cm LVPW d(<1.2cm) 1.6 cm RV (d.<2.3cm) 3.3 cm LVPW (sytole) 1.9 cm LV diastole(<5.6CM) 5.2 cm MV E-F(>70mm/sec) cm LV systole 3.5 cm LVOT Diameter 1.7 cm MV exc.(>10mm) 1.3 cm Est.ejection fraction (50-75%) % Pericardial Effusion N DOPPLER: LVIT cm/sec A 118 cm/sec E 62.0 cm/sec LA cm/sec RVSP 24 mmHg LVOT 88 cm/sec AOP1/2T m/s Asc. Ao 226 cm/sec RVOT 83 cm/sec RA cm/sec PA 209 cm/sec AV Gradient Peak 20.41mmHg AV Mean 13.46mmHg AV Area 7.0 cm MV Gradient Peak 7.17 mmHg MV Mean 1.97 mmHg MV Area cm COMMENTS: Lift Operator: Nena TALLEY Rn Case Manager: 1 Dr. Davis TAPE# PACS DATE OF SERVICE: 03/18/2017 Echocardiogram FINDINGS: 1. Left ventricular chamber size is within normal limits. Left ventricular systolic function is normal. Overall ejection fraction 55%. 2. Left atrium is enlarged at 4.2 cm. Right atrium and right ventricular chamber sizes are as well mildly dilated. 3. Valvular structures: Aortic valve demonstrates ipcd-he-[id number] calcific ECHOCARDIOGRAM REPORT [id number] JUDY MIN aortic stenosis. Valve area calculates at 1.0 cm-squared. There is a gradient of 20 mm across the valve. The remaining valvular structures have normal structure and motion. 4. Doppler interrogation reveals mild mitral regurgitation, mild tricuspid regurgitation, no other valvular insufficiency or stenosis and pulmonary systolic pressure is normal estimated at 24 mmHg. 5. No evidence of pericardial effusion or left ventricular thrombus. TRANSINT:[id number] Voice Confirmation ID: [id number] DOCUMENT ID: [id number] AFSANEH DAVIS MD CC: [id number] DICTATION DATE: 03/18/17 1121 SULFONATION EQUIPMENT OPERATOR: 03/18/17 1416 ADM IN [place] [id number] [place] [address]
[2017-03-17 11:23] LABS: BASOPHILS 0.1 % (0-2); EOSINOPHILS 1.6 % (0-7); HEMATOCRIT 44.3 % (42.0-54.0); HEMOGLOBIN 14.8 g/dL (13.5-17.5); IMMATURE GRANULOCYTES 0.3 % (0-5); LYMPHOCYTES 16.9 % (15-50); MCH 30.3 pg (26.0-34.0); MCHC 33.4 g/dL (31.0-37.0); MCV 90.6 fL (80.0-100.0); MEAN PLATELET VOLUME 9.4 fL (7.4-10.4); MONOCYTES 5.8 % (2-11); NEUTROPHILS 75.3 % (40-80); RBC 4.89 10x6/uL (4.20-6.10); RDW 15.1 % (11.5-14.5); WBC 7.4 10x3/uL (4.8-10.8)
[2017-03-17 11:25] LABS: PLATELET COUNT 160 10x3/uL (130-400)
[2017-03-17 11:34] LABS: APTT 35.2 SECONDS (22.8-39.4); INR 1.07 (0.85-1.17); PROTIME 13.8 SECONDS (11.6-15.0)
[2017-03-17 11:37] LABS: ALBUMIN 3.1 g/dL (3.4-5.0); ANION GAP 7.5 mmol/L (8-16); BILIRUBIN - TOTAL 0.45 mg/dL (0.2-1.3); CALCIUM 8.5 mg/dL (8.5-10.1); CARBON DIOXIDE 32.3 mmol/L (21.0-32.0); POTASSIUM - SERUM 3.8 mmol/L (3.5-5.1); PROTEIN - SERUM 6.2 g/dL (6.4-8.2)
--- NOTE | 2017-03-17 12:49 | NUR ---
ARRIVED VIA STRETCHER FROM ER WITH ONE ER NURSE, MOVED TO BED PER SELF FROM BED TO BED, EXPRESSIVE APHASIA NOTED, PATIENT BECOMES AGRIVATED WHEN HE HEARS HIS OWN SPEECH AND MAKES NO SENCE. LEFT EYE CLOUDY AND DOES NOT REACT TO LIGHT, PATIENT STATES "ITS ALMOST GONE." RIGHT PUPIL 3MM AND VERY SLUGGISH TO STIMULI, TOUNGE EXTRUDES MIDLINE. VS STABLE AT PRESENT.
[2017-03-17] MEDS ORDERED: PROTONIX40 MG PO (13:22)
--- NOTE | 2017-03-17 13:42 | NUR ---
CONTACTED ER UPON ARRIVAL AND VERIFIED THAT DR. BANKS HAS BEEN CONSULTED PER THE ER STAFF.
--- NOTE | 2017-03-17 19:30 | NUR ---
REPORT RECVD.CARE ASSUMED. INITIAL ASSMNT COMPLETED. SEE FLOWSHEET FOR ALL FINDINGS. RESTLESS IN BED. APHASIC. PERRLA. ORIENTED. RESP SHALLOW. SPO2 98% ON O2 AT 2 LPM NC. PULSES PALP. SCDS ON. F/C PATENT WITH CLR YELLOW UOP. AFEBRILE. HOB UP. BED ALARM ON. CONT CURRENT POC.
--- NOTE | 2017-03-17 23:30 | NUR ---
REASSESSMENT COMPLETED. SEE FLOWSHEET FOR ALL FINDINGS. RESTLESS IN BED. APHASIC. PERRLA. ORIENTED. RESP SHALLOW. SPO2 98% ON O2 AT 2 LPM NC. PULSES PALP. SCDS ON. F/C PATENT WITH CLR YELLOW UOP. AFEBRILE. HOB UP. BED ALARM ON. CONT CURRENT POC.
[2017-03-18] VITALS (36 sets, daily range): BP systolic 90–185; BP diastolic 38–106
--- NOTE | 2017-03-18 01:15 | NUR ---
RESTING WITH NO DISTRESS. SYS B/P WITHIN PARAMETERS. NO NEEDS VOICED.
--- NOTE | 2017-03-18 03:15 | NUR ---
REASSESSMENT COMPLETED. SEE FLOWSHEET. SINUS JOCELYN. SYS B/P WITHIN PARAMETERS. BED ALARM ON. CONT POC.
[2017-03-18 03:59] LABS: BASOPHILS 0.1 % (0-2); EOSINOPHILS 0.5 % (0-7); HEMATOCRIT 39.7 % (42.0-54.0); HEMOGLOBIN 13.2 g/dL (13.5-17.5); IMMATURE GRANULOCYTES 0.2 % (0-5); LYMPHOCYTES 11.9 % (15-50); MCHC 33.2 g/dL (31.0-37.0); MCV 90.2 fL (80.0-100.0); MEAN PLATELET VOLUME 9.4 fL (7.4-10.4); MONOCYTES 7.2 % (2-11); NEUTROPHILS 80.1 % (40-80); PLATELET COUNT 155 10x3/uL (130-400)
[2017-03-18 04:16] LABS: ANION GAP 10.6 mmol/L (8-16); CALCIUM 7.8 mg/dL (8.5-10.1); CARBON DIOXIDE 31.3 mmol/L (21.0-32.0); CREATININE - SERUM 2.2 mg/dL (0.6-1.3); POTASSIUM - SERUM 3.9 mmol/L (3.5-5.1)
--- NOTE | 2017-03-18 05:30 | NUR ---
SPOKE WIT SIG OTHER VIA PHONE. UPDATE GIVEN. PT LYING SIDE LYING. VSS. SINUS JOCELYN. FIRST DEGREEE BLOCK. CONT POC.
--- NOTE | 2017-03-18 11:00 | NUR ---
TO MRI VIA STRETCHER AND ONE BUSINESS PERFORMANCE SPECIALIST. PATIENT MOVED FROM BED TO STRETCHER PER SELF, NO ASSISTANCE REDQUIRED, NO NOTED DISTRESS, LINEN CHANGED.
--- NOTE | 2017-03-18 12:20 | NUR ---
RETRUNED TO ICU ROOM 2304 FROM MRI
--- NOTE | 2017-03-18 19:15 | NUR ---
SHIFT ASSESSMENT COMPLETE. PT IS LYING IN BED RESTING PEACEFULLY AT THIS TIME. A&O X4. R EYE, 3MM, SLUGGISH REACTION TO LIGHT. L EYE FIXED. 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 BILAT EQUAL AND STRONG HAND MANUFACTURER AGENT AND FOOT PUMPS. S1S2 AUDIBLE, NS WITH 1ST DEGREE BLOCK VIA TELEMETRY, HR 71. REG RESP RATE OF 20 WITH CLEAR LUNG SOUNDS THROUGHOUT ALL LOBES. GENERALIZED EDEMA NOTED. BILAT BRUSING ON UPPER EXT. SKIN IS LOOSE, THIN-TRANSPARENT. SKIN TEAR TO R ELBOW. ABD FLAT, NON-TENDER TO TOUCH. FOELY CATH DRAINING BLOOD TINGED URINE. PT DENIES ANY PAIN/ANXIETY AT THIS TIME. FALL PREVENTION INTERVENTIONS AHERED. LT AC PIV, 18G INFUSING NS @ 10 ML/HR. COMPLETE LINEN CHANGE, PARTIAL BED BATH. BP 165/96 NIBP, TEMP 97.7. PT DENIES ANY REQUESTS AT THIS TIME. WILL CONT WITH POC.
--- NOTE | 2017-03-18 21:20 | NUR ---
PT IS REQUESTING REFRESHMENTS. DELIVERED PROMPTLY. HS MEDS ADMINISTERED. PT DENIES ANY PAIN/ANXIETY AT THIS TIME. BP 164/92. NO FURTHER REQUESTS. WILL CONT WITH POC.
--- NOTE | 2017-03-18 23:00 | NUR ---
REASSESSMENT COMPLETE. PT IS A&O X4. RESTARTED CLEVIPREX DUE TO SBP > 180 AND DBP > 100. BP IS CURRENTLY 180/100. CLEVIPREX INFUSING AT 1 MG. WILL TITRATE NEEDED. NO FURTHER CHANGES NOTED. WILL CONT WITH POC.
[2017-03-19] VITALS (29 sets, daily range): BP systolic 145–199; BP diastolic 70–109; Ht 185.4 cm; Wt 84.0 kg
--- NOTE | 2017-03-19 01:00 | NUR ---
PT RESTING ON R SIDE AT THIS TIME. BP 158/88. NO SIGNS OF ACUTE DISTRESS NOTED. WILL CONT TO TITRATE ACCORDINGLY. WILL CONT TO MONITOR.
--- NOTE | 2017-03-19 01:30 | NUR ---
REDRESSED PIV SITE. LABELED, SWAB CAPS IN PLACE. WILL CONT WITH POC.
[2017-03-19 03:27] LABS: BASOPHILS 0.1 % (0-2); EOSINOPHILS 2.1 % (0-7); HEMATOCRIT 41.3 % (42.0-54.0); HEMOGLOBIN 13.8 g/dL (13.5-17.5); IMMATURE GRANULOCYTES 0.2 % (0-5); LYMPHOCYTES 12.1 % (15-50); MCH 30.5 pg (26.0-34.0); MCHC 33.4 g/dL (31.0-37.0); MCV 91.2 fL (80.0-100.0); MEAN PLATELET VOLUME 9.2 fL (7.4-10.4); NEUTROPHILS 76.5 % (40-80); PLATELET COUNT 146 10x3/uL (130-400); RBC 4.53 10x6/uL (4.20-6.10); WBC 8.9 10x3/uL (4.8-10.8)
[2017-03-19 03:30] LABS: ANION GAP 10.8 mmol/L (8-16); CARBON DIOXIDE 30.9 mmol/L (21.0-32.0); CREATININE - SERUM 2.1 mg/dL (0.6-1.3); POTASSIUM - SERUM 3.7 mmol/L (3.5-5.1)
--- NOTE | 2017-03-19 03:30 | NUR ---
REASSESSMENT COMPLETE. PT RESTING AT THIS TIME. NO SIGNS OF DISTRESS NOTED. UPON AWAKENING PT HE STATES THAT HE IS SLEEPING REALLY WELL AND THAT HE DOES NOT HAVE ANY PAIN/ANXIETY. HR 53, SINUS JOCELYN WITH FIRST DEGREE BLOCK, BP 172/93, RR 13, O2 SAT 100%. HE IS RESTING ON HIS R SIDE, SCDS IN PLACE. HE DENIES ANY FURTHER REQUESTS. WILL CONT WITH POC.
--- NOTE | 2017-03-19 05:00 | NUR ---
CLEVIPREX TITRATED OFF. BP IS STABLE AT 153/81. WILL CONT TO REASSESS. PT RESTING PEACEFULLY. NO SIGNS OF DISTRESS NOTED.
--- NOTE | 2017-03-19 06:45 | NUR ---
SPOKE WITH DR. BANKS. HE STATES TO ADMINISTER BP MEDS IF BP GOES OVER 170'S/100'S. HE WOULD LIKE TO KEEP HIM OFF OF BP MEDS IF POSSIBLE. WILL CONT WITH POC.
--- NOTE | 2017-03-19 11:20 | NUR ---
PATIENT IS SLEEPING AT THIS TIME. CALL LIGHT WITHIN REACH, AND BED IN LOW POSITION.
--- NOTE | 2017-03-19 12:22 | NUR ---
PATIENT MOVED SELF UP IN BED FOR LUNCH. CALL LIGHT WITHIN REACH, AND BED IN LOW POSITION. PATIENT IS TALKING ON PHONE AT THIS TIME.
--- NOTE | 2017-03-19 12:56 | NUR ---
DR. PATEL HERE FOR BRONCHOSCOPY.
--- NOTE | 2017-03-19 16:01 | NUR ---
PATIENT IS SLEEPING AT THIS TIME. CALL LIGHT WITHIN REACH AND BED IN LOW POSITION.
--- NOTE | 2017-03-19 17:39 | NUR ---
REPORT CALLED TO MED II. PATIENT WILL BE GOING TO ROOM 0232.
--- NOTE | 2017-03-19 18:09 | NUR ---
PATIENT MOVED TO ROOM 2139 VIA W/C AND TOLERATED WELL. PATIENT TRANSFERED WITH LITTLE ASSIST.
--- NOTE | 2017-03-19 18:22 | NUR ---
RECIEVED FROM ICU. ALERT AND ORIENTED. SPEECH CLEAR. TELEMERTY SHOWS SR WITH 1ST DEGREE BLOCK. VALIENTE CATH TO GRAVITY BAG WITH PINK TINGED URINE. LEFT AC IV WITH NS AT KVO. 02 AT 2 L/M PER NC. BRUISING TO UPPER EXTERMITIES. , EDEMA TO LOWER EXTERMITIES. DENIES ANY NEEDS. SR UP WITH CALL LIGHT IN REACH. WILL MONITOR
--- NOTE | 2017-03-19 19:30 | NUR ---
RECEIVED REPORT, WILL ASSUME CARE OF PT, DENIES ANY NEEDS AT THIS TIME, BED IS LOW, SRX2, CALL LIGHT IN REACH, WILL CONTINUE PLAN OF CARE
--- NOTE | 2017-03-19 23:08 | NUR ---
GAVE .25ML ATIVAN TO HELP CALM PT
[2017-03-20] VITALS: BP 116/77
--- NOTE | 2017-03-20 00:10 | NUR ---
BUSINESS SYSTEMS MANAGER AT BED SIDE TO OBTAIN VITALS.
--- NOTE | 2017-03-20 01:24 | NUR ---
PT SLEEPING ON R.SIDE, BED IS LOW, SRX2, CALL LIGHT IN REACH, WILL CONTINUE PLAN OF CARE
--- NOTE | 2017-03-20 03:06 | NUR ---
PT RESTING IN BED WITH NO DISTRESS. RESPS EVEN/NONLABORED. MONITOR AND CPOC. CALL LIGHT IN REACH. BED LOW.
[2017-03-20 04:00] VITALS: BP 157/72
[2017-03-20 05:34] LABS: BASOPHILS 0.1 % (0-2); EOSINOPHILS 2.4 % (0-7); HEMOGLOBIN 13.5 g/dL (13.5-17.5); IMMATURE GRANULOCYTES 0.2 % (0-5); MCH 30.3 pg (26.0-34.0); MCHC 32.9 g/dL (31.0-37.0); MCV 91.9 fL (80.0-100.0); MEAN PLATELET VOLUME 9.5 fL (7.4-10.4); MONOCYTES 9.3 % (2-11); PLATELET COUNT 142 10x3/uL (130-400); RBC 4.46 10x6/uL (4.20-6.10); RDW 15.1 % (11.5-14.5); WBC 8.4 10x3/uL (4.8-10.8)
[2017-03-20 05:47] LABS: CALCIUM 8.4 mg/dL (8.5-10.1); CARBON DIOXIDE 31.1 mmol/L (21.0-32.0); CREATININE - SERUM 2.1 mg/dL (0.6-1.3); POTASSIUM - SERUM 4.1 mmol/L (3.5-5.1)
--- NOTE | 2017-03-20 07:00 | NUR ---
RECEIVED REPORT. ASSUMED CARE OF PATIENT. CALL LIGHT WITHIN REACH. RESTING ON RIGHT LATERAL SIDE, RESP EVEN AND UNLABORED. EASILY AROUSED. DENIES NEEDS AT THIS TIME. NO DISTRESS.
[2017-03-20 08:23] VITALS: BP 197/84
--- NOTE | 2017-03-20 11:35 | NUR ---
FSBS 136. NO INSULIN COVERAGE REQUIRED.
--- NOTE | 2017-03-20 12:00 | NUR ---
MEDICATED WITH CLONIDINE AT THIS TIME FOR BP 210/98. PATIENT SITTING UP IN BED CONSUMING NOON MEAL AT THIS TIME WITH FEMALE VISITOR AT BEDSIDE.
[2017-03-20 12:13] VITALS: BP 210/87
--- NOTE | 2017-03-20 15:01 | NUR ---
F/C D/C'D AT THIS TIME. TOLERATED D/C OF VALIENTE WELL. INSTRUCTED PATIENT THE NEED TO URINATE BY 2100. VERBALIZED UNDERSTANDING OF INSTRUCTIONS PROVIDED. NO DISTRESS. CALL LIGHT WITHIN REACH.
--- NOTE | 2017-03-20 16:02 | NUR ---
WAS HANDED A PHONE, IT WAS RHODA IN ADMINISTRATION. SHE STATED THAT SHE HAD THE POA ON THE PHONE FOR THE PATIENT IN 2138, MECHELLE. ASKED IF I WAS A CASEMANAGER AND IF I WOULD BE ABLE TO TALK TO HER. EXPLAINED YES I WAS AND SHE WAS GIVEN EXT 0757 TO SEND THE FAMILY MEMBER TO. @7764, THE PHONE RANG AND SANDI MONCADA, PATIENT DAUGHTER WAS ON THE OTHER END. SHE STATED THAT SHE HAS BEEN ON THE PHONE WITH ADMINISTRATION 2 TIMES SINCE ONE O'CLOCK AND OTHERS AND "DID THEY TELL YOU WHY I AM CALLING?". I EXPLAINED THAT I WAS NOT AWARE OF WHY, BUT WOULD BE GLAD TO TRY TO HELP HER. SHE STATED THAT THEY WERE TRYING TO DISCHARGE HER DAD TODAY AND HE WAS NOT STABLE TO DISCHARGE. 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 SHE STATED "IF HE HAS A STROKE BECAUSE OF HIS BLOOD PRESSURE, WE WERE ALL GOING TO HAVE MAJOR PROBLEMS". SHE THEN QUESTIONED ME TO WHAT NEEDED TO BE DONE TO TRANSFER HIM TO [facility]. I THEN EXPLAINED THAT FIRST HE WOULD HAVE TO HAVE A MEDICAL CONDITION THAT COULD NOT BE TREATED HERE, AND HE WOULD HAVE TO HAVE A PHYSICIAN THAT WAS WILLING TO ACCEPT HIM AND TAKE OVER CARE. SHE STATED THAT THEY "HAVE A DOCTOR THAT WILL DO THAT". I THEN EXPLAINED THAT UNLESS THERE WAS SOMETHING THAT THEY COULD DO TO TREAT THE PATIENT THAT COULD NOT BE DONE HERE, IT WOULD BE CONSIDERED A LATERAL TRANSFER AND THEREFORE WOULD PROBABLY NOT BE ACCEPTED BY THE OTHER FACILITY FOR TRANSFER. SHE THEN GOT UPSET. STATED THAT HIS BLOOD PRESSURE HAS BEEN A PROBLEM SINCE BEFORE HE CAME IN AND NO ONE SEEMS TO WANT TO ADDRESS IT AND GET IT STABLE. WE THEN REVIEWED THE MEDS HE WAS ON BEFORE HE CAME IN THE HOSPITAL AND THE MEDS HE WAS NOW ON. WE TALKED ABOUT HYPERTENSION AND HYPOTENSION. WE TALKED ABOUT THE DIAGNOSIS THAT HE HAS BEEN GIVEN. SHE WAS UPSET BECAUSE SHE SAID THAT SHE HAD BEEN TOLD BY TWO NURSES THAT HE DID NOT HAVE A STROKE. I EXPLAINED THAT PER HIS DIAGNOSIS IN THE DOCTORS DOCUMENTATION, HE HAS. SHE WAS SUPRISED BY THIS. ALL QUESTIONS SHE HAD AFTER BEING TOLD THIS WERE ANSWERED. SHE WAS THANKFUL FOR MY TIME. I GAVE HER MY PORTABLE PHONE NUMBER [phone] AND MADE MYSELF AVAILABLE IF SHE WERE TO HAVE ANY OTHER QUESTIONS. SINCE SHE IS AWARE THAT WE ARE ADDRESSING THE PROBLEMS AND WHAT EXACTLY THE PROBLEMS ARE, SHE IS NO LONGER PRESSING FOR PATIENT TRANSFER TO [facility]. SHE IS AFRAID THE PATIENT WOULD BE DISCHARGED TOO SOON. EXPLAINED THAT WE HAVE PUT IN FOR AN INPATIENT REHAB EVAL TO SEE IF WE COULD SEND HIM TO REHAB AND THEY WOULD BE ABLE TO CONTINUE TO MONITOR HIM DOWN THERE. AGAIN SHE WAS THANKFUL. CALL WAS ENDED.
[2017-03-20 16:10] VITALS: BP 191/85
--- NOTE | 2017-03-20 16:30 | NUR ---
PATIENT VOIDED 225 CC URINE. NO DISTRESS.
--- NOTE | 2017-03-20 16:50 | NUR ---
Rehab Note- Acute Rehab Prescreen order received. The patient has an appropriate acute rehab diagnosis, will accept the patient to [facility] Acute rehab when ready for discharge from the acute hospital. Thank you for this referral! Cristy Finley RN Clinical Liaison, [facility] Rehab
--- NOTE | 2017-03-20 17:07 | NUR ---
FSBS 133. NO INSULIN COVERAGE REQUIRED.
[2017-03-20 19:00] VITALS: BP 153/66
--- NOTE | 2017-03-20 19:30 | NUR ---
RECEIVED REPORT, WILL ASSUME CARE OF PT, DENIES ANY NEEDS AT THIS TIME, BED IS LOW, SRX2, CALL LIGHT IN REACH, WILL CONTINUE PLAN OF CARE
[2017-03-21] VITALS: BP 137/59
--- NOTE | 2017-03-21 04:02 | NUR ---
ASSESSMENT COMPLETE, SEE FLOWSHEET, BED IS LOW, SRX2, CALL LIGHT IN REACH, WILL CONTINUE PLAN OF CARE
[2017-03-21 05:31] LABS: BASOPHILS 0.1 % (0-2); EOSINOPHILS 2.6 % (0-7); HEMATOCRIT 40.6 % (42.0-54.0); HEMOGLOBIN 13.5 g/dL (13.5-17.5); IMMATURE GRANULOCYTES 0.2 % (0-5); LYMPHOCYTES 13.8 % (15-50); MCH 30.6 pg (26.0-34.0); MCHC 33.3 g/dL (31.0-37.0); MCV 92.1 fL (80.0-100.0); MEAN PLATELET VOLUME 9.4 fL (7.4-10.4); MONOCYTES 7.1 % (2-11); NEUTROPHILS 76.2 % (40-80); PLATELET COUNT 161 10x3/uL (130-400); RBC 4.41 10x6/uL (4.20-6.10); RDW 14.9 % (11.5-14.5); WBC 8.6 10x3/uL (4.8-10.8)
--- NOTE | 2017-03-21 05:37 | NUR ---
PT RESTING IN BED WITH NO DISTRESS. RESPS EVEN/NONLABORED. CALL LIGHT IN REACH. CPOC.
[2017-03-21 06:23] LABS: ANION GAP 11.7 mmol/L (8-16); CALCIUM 8.4 mg/dL (8.5-10.1); CARBON DIOXIDE 31.4 mmol/L (21.0-32.0); CREATININE - SERUM 1.7 mg/dL (0.6-1.3); POTASSIUM - SERUM 4.1 mmol/L (3.5-5.1)
--- NOTE | 2017-03-21 07:14 | NUR ---
ASSESSMENT DONE. SUPPLIES FOR SHOWER GIVEN. INSTRUCTED TO CALL WHEN READY TO GET IN SHOWER. VERBALIZED UNDERSTANDING. NO OTHER NEEDS AT THIS TIME
[2017-03-21 07:50] VITALS: BP 152/65
--- NOTE | 2017-03-21 08:17 | NUR ---
Patient Name: JUDY MIN Admission Status: ER Accout number: [id number] Admission Date: 03-17-2017 : 1930 Admission Diagnosis: Attending: MICHEAL SARMIENTO Current LOS: 4 Anticipated DC Date: Planned Disposition: Inpatient Rehab Primary Insurance: MEDICARE A & B LATE ENTRY FROM 03-20-17 Discharge Planning Comments: * Is the patient Alert and Oriented? Yes 0 * How many steps to enter\exit or inside your home? 2 0 * PCP DR. SARMIENTO 0 * Pharmacy [facility] 0 * Preadmission Environment Home with Family 0 * ADLs Independent 0 * Equipment Cane Glucometer Shower Chair 0 * Other Equipment [facility] - MEDICAL EQUIPMENT PROVIDER; PT TURNED WALKER BACK IN BECAUSE HE FELT HE NO LONGER NEEDED IT. 0 * List name and contact numbers for known caregivers / representatives who currently or will assist patient after discharge: MARIA FERNANDA MACIAS, SIGNIFICANT OTHER, SANDI MONCADA, DTR, 0 * Community resources currently utilized None 0 * Please name any agencies selected above. NONE 0 * Additional services required to return to the preadmission environment? Yes * Can the patient safely return to the preadmission environment? Yes 0 * Has this patient been hospitalized within the prior 30 days at any hospital? No 0 CM MET WITH PT AND SIGNIFICANT OTHER IN ROOM TO DISCUSS DISCHARGE PLANNING AND NEEDS. PT REPORTS LIVING AT HOME INDEPENDENTLY WITH HIS SIGNIFICANT OTHER. PT HAS CANE, GLUCOMETER AND SHOWER CHAIR; PT HAD A WALKER BUT GAVE IT BACK TO THE [facility] FOR SOMEONE WHO NEEDED IT PT REPORTS HE DID NOT. PT HAS NO OUTSIDE SERVICES ASSISTING IN THE HOME. PT'S SIGNIFICANT OTHER REPORTS THAT THEY REFUSED HOME HEALTH AT THEIR LAST VISIT IN THE HOSPITAL. CM DISCUSSED AVAILABILITY OF HOME HEALTH, REHAB SERVICES AND MEDICAL EQUIPMENT. PT'S SIGNFICANT OTHER REPORTS CONCERN THAT PT WILL BE DISCHARGED HOME TOO SOON AND THE HOSPITAL MACHINE GUIDE BASE WINDER THAT TALKED TO THEM AND TOLD PT THAT THEY HAVE REHAB DOWNSTAIRS AND PT WOULD LIKE TO BE CONSIDERED FOR THAT. PT ALSO REPORTS A SECONDARY PLAN OF [facility] FOR REHAB IF INPATIENT TURNS HIM DOWN. PT REPORTS [facility] IS CLOSE TO HOME AND REPORTS SIGNIFICANT OTHER WILL PICK PT UP FOR DISCHARGE HOME. CHOICE LETTER SIGNED. CM OBTAINED ORDER FOR INPATIENT REHAB PRESCREENING. ON 03-21-17 AT APPROXIMATELY 0800 HOURS, CM FAXED REFERRAL TO [facility] FOR REHAB SCREENING. CM WAITING ADMISSION DETERMINATIONS FROM [facility] INPATIENT REHAB AND [facility] LONG TERM FACILITY. Mac Artist: Minh Cash
--- NOTE | 2017-03-21 10:53 | NUR ---
Patient Name: JUDY MIN Encounter No: [id number] : 1930 Primary Insurance: MEDICARE A & B Anticipated DC Date: 03-21-2017 Planned Disposition: Inpatient Rehab External Planned Provider: [facility] INPATIENT REHAB DCP follow-up note: CM RECEIVED CALL FROM YOSVANY OF [facility] WHO REPORTS BED AVAILABLE AND THEY WILL ACCEPT PT FOR REHAB AT DISCHARGE, PT WILL NEED TO BE IN [facility] FACILITY BEFORE 3PM ON DAY OF REHAB ADMIT. CM SPOKE TO PT IN ROOM, PT REPORTS HE PREFERS INPATIENT REHAB AT [place] AND WILL ACCEPT [facility] IF DENIED BY INPATIENT REHAB. IMPORTANT MESSAGE FROM MEDICARE PROVIDED AND EXPLAINED. CM SPOKE TO ERIK OF [facility] INPATIENT REHAB, ERIK WILL SCREEN PT FOR INPATIENT REHAB ADMISSION. CM WAITING ADMISSION DETERMINATIONS FROM [facility] INPATIENT REHAB. Food Technologist: Minh Cash
[2017-03-21 11:19] VITALS: BP 140/65
--- NOTE | 2017-03-21 11:59 | NUR ---
PT LYING BACK IN BED RESTING QUIETLY WITH AT BEDSIDE. PT DENIES ANY CURRENT PAIN OR NEEDS. CL IN REACH. WILL CTM.
--- NOTE | 2017-03-21 14:04 | NUR ---
Patient Name: JUDY MIN Encounter No: [id number] : 1930 Primary Insurance: MEDICARE A & B Anticipated DC Date: 03-21-2017 Planned Disposition: Outpatient clinics\\services (Programs) External Planned Provider: [facility] OUTPATIENT PHYSICAL THERAPY DCP follow-up note: CM RECEIVED MESSAGE TO MICHELL SHARMA OF INPATIENT REHAB; CM CALLED ZACHARY WHO ADVISED CM THAT SHE HAS MET WITH PT WHO REFUSED INPATIENT REHAB AND WANTS OUTPATIENT REHAB SERVICES. CM MET WITH PT AND SIGNIFICANT OTHER IN ROOM, DISCUSSED REHAB OPTIONS AND REMINDED PT THAT CM HAS PT ACCEPTED AT THE [facility] FOR REHAB SERVICES ALSO. PT REPORTS THAT HE WILL BE GOING HOME AT DISCHARGE AND WANTS OUTPATIENT THERAPY SERVICES. PT'S SIGNFICANT OTHER DISCUSSED THIS DECISION WITH PT, POINTING OUT THAT HE AGREED YESTERDAY TO "GO SOMEWHERE". PT EXPRESSED UNDERSTANDING AND REPORTS HE IS BETTER AND WILL GO HOME AND DO OUTPATIENT THERAPY AT [facility]. CM POINTED OUT THAT HE HAS CLOSER OPTIONS FOR OUTPATIENT THERAPY IN [place] AND RESTATED PT'S DESIRE TO COME TO [facility] FOR OUTPATIENT PHYSICAL THERAPY. PT RESTATED THAT HE WILL DRIVE TO [facility] FOR OUTPATIENT PHYSICAL THERAPY. CM NOTIFIED SHOBHA VELASCO OF PT'S REFUSAL FOR INPATIENT OR SNF REHAB AND DESIRE FOR OUTPATIENT THERAPY. CM TO ARRANGE OUTPATIENT PHYSICAL THERAPY WITH PHYSICIAN ORDER BY CALLING JASWINDER AT EXTENSION 1460. CM TO CONTINUE TO FOLLOW AND ASSIST NEEDED. Minh Cash, CASE MANAGEMENT
[2017-03-21] MEDS ORDERED: NORVASC5 MG PO (14:41)
[2017-03-21] MEDS ORDERED: ASPIRIN81 MG PO (14:41)
[2017-03-21] MEDS ORDERED: CATAPRES0.1 MG PO (14:41)
--- NOTE | 2017-03-21 16:20 | NUR ---
Patient Name: JUDY MIN Encounter No: [id number] : 1930 Primary Insurance: MEDICARE A & B Anticipated DC Date: 03-21-2017 Planned Disposition: Outpatient clinics\services (Programs) External Planned Provider: [facility] OUTPATIENT THERAPY DCP follow-up note: CM RECEIVED DISCHARGE ORDER AND OUTPATIENT THERAPY ORDER. CM CALLED JASWINDER AT [phone], NOTIFIED OF ORDER, FAXED ORDER TO [phone]. JASWINDER TO CONTACT PT VIA PHONE TO ARRANGE OUTPATIENT THERAPY APPOINTMENT. PT AND SIGNIFICANT OTHER NOTIFIED. PT IN AGREEMENT WITH DISCHARGE HOME AND OUTPATIENT THERAPY AT [place]. CM EDUCATED PT ON AVAILABILITY OF [facility] NURSING HOME REHAB WITHIN THIRTY DAYS OF HOSPITAL DISCHARGE; PT REPORTS UNDERSTANDING AND IS GOING HOME TODAY. PT'S SIGNIFICANT OTHER IS HERE TO TAKE PT HOME TODAY. PT DENIES FURHTER DISCHARGE NEEDS, INDICTATED FOR CM TO LEAVE THE ROOM WITH EYE MOVEMENTS AND THUMB JESTURES TOWARD THE DOOR. CM LEFT THE ROOM REQUESTED BY THE PATIENT. Minh Cash, CASE MANAGMENT
--- NOTE | 2017-03-21 17:00 | NUR ---
D/C HOME PER PERSONAL VEHICLE
== END 2017-03-21 18:33 | disposition home or self-care (01) | DRG 65 ==
LOC: D.ER 11:06 → D.ICU 12:26 → D.M2 12:26
PROVIDERS: Emergency Medicine; ADMIT Family Medicine
DX: I63.512 Cerebral infarction due to unspecified occlusion or stenosis of left middle cerebral artery (principal); I16.9 Hypertensive crisis, unspecified; R47.02 Dysphasia; E11.9 Type 2 diabetes mellitus without complications; I35.0 Nonrheumatic aortic (valve) stenosis; I44.0 Atrioventricular block, first degree; R40.2363 Coma scale, best motor response, obeys commands, at hospital admission; R40.2143 Coma scale, eyes open, spontaneous, at hospital admission; R40.2233 Coma scale, best verbal response, inappropriate words, at hospital admission; I65.22 Occlusion and stenosis of left carotid artery; Z86.73 Personal history of transient ischemic attack (TIA), and cerebral infarction without residual deficits

== ENCOUNTER → 2018-05-28 10:00 | Outpatient (CLI) | payer MEDICARE, OTHER ==
[2017-03-19 09:30] VITALS: BMI 23.7
[~2018-05-28 10:00] MED LIST changes: +LISINOPRIL2.5 MG PO; +NORVASC5 MG PO; +STOOL SOFTENER100 M1 PO
== END | disposition home or self-care (01) ==
LOC: D.US 10:00
DX: I65.23 Occlusion and stenosis of bilateral carotid arteries (principal)

== ENCOUNTER 2018-06-03 08:06 | Outpatient (CLI) | payer MEDICARE, OTHER ==
[~2018-06-03] VITALS: Ht 185.4 cm; Wt 84.1 kg
[~2018-06-03 08:06] MED LIST changes: -LISINOPRIL2.5 MG PO; -STOOL SOFTENER100 M1 PO
[2018-06-03 08:51] VITALS: BP 179/83; Ht 185.4 cm; Wt 84.1 kg
[2018-06-17] MEDS ORDERED: CATAPRES0.1 MG PO (09:58)
[2018-06-17] MEDS ORDERED: LISINOPRIL2.5 MG PO (09:59)
[2018-06-17] MEDS ORDERED: NORVASC5 MG PO (10:00)
[2018-06-17] MEDS ORDERED: ROCALTROL0.25 MCG PO (10:02)
[2018-06-17] MEDS ORDERED: STOOL SOFTENER100 M1 PO (10:03)
== END 2018-06-03 17:45 | disposition home or self-care (01) ==
LOC: D.OPS 08:06
DX: I65.29 Occlusion and stenosis of unspecified carotid artery (principal); Z01.812 Encounter for preprocedural laboratory examination

== ENCOUNTER 2018-06-18 05:00 | Inpatient (IN) | payer MEDICARE, OTHER ==
[2018-06-17 09:43] LABS: HEMATOCRIT 37.1 % (42.0-54.0); HEMOGLOBIN 12.1 g/dL (13.5-17.5); MCH 29.8 pg (26.0-34.0); MCHC 32.6 g/dL (31.0-37.0); MCV 91.4 fL (80.0-100.0); MEAN PLATELET VOLUME 9.1 fL (7.4-10.4); RBC 4.06 10x6/uL (4.20-6.10); RDW 14.2 % (11.5-14.5); WBC 10.3 10x3/uL (4.8-10.8)
[2018-06-17 09:53] LABS: APTT 32.7 SECONDS (22.8-39.4); INR 1.11 (0.85-1.17); PROTIME 13.8 SECONDS (11.6-15.0)
[2018-06-17 09:57] LABS: APPEARANCE CLEAR (CLEAR); BACTERIA FEW /hpf (NONE SEEN); BILIRUBIN NEGATIVE (NEGATIVE); COLOR YELLOW (YELLOW); EPITHELIAL CELLS 0-5 /hpf (0-5); GLUCOSE NEGATIVE (NEGATIVE); GRANULAR CAST OCC /lpf (NONE SEEN); HYALINE CAST RARE /lpf (NONE SEEN); KETONE NEGATIVE (NEGATIVE); MUCUS <1+ /lpf (NONE SEEN); NITRITE NEGATIVE (NEGATIVE); PROTEIN 1+ mg/dL (NEGATIVE); SPECIFIC GRAVITY 1.015 (1.005-1.020)
[2018-06-17 09:58] LABS: RED CELLS - URINE RARE /hpf (0-5); WHITE CELLS - URINE RARE /hpf (0-5)
[2018-06-17 10:00] LABS: ANION GAP 13.6 mmol/L (8-16); BILIRUBIN - TOTAL 0.89 mg/dL (0.2-1.3); CALCIUM 8.4 mg/dL (8.5-10.1); CARBON DIOXIDE 27.4 mmol/L (21.0-32.0); CREATININE - SERUM 2.1 mg/dL (0.6-1.3); PROTEIN - SERUM 6.6 g/dL (6.4-8.2)
[~2018-06-18] VITALS: Ht 185.4 cm; Wt 81.8 kg
[2018-06-18] VITALS (41 sets, daily range): BP systolic 104–181; BP diastolic 52–75; Ht 185.4 cm; Wt 81.8 kg
--- NOTE | ~2018-06-18 | MORECARE ---
CASE MANAGEMENT DISCHARGE SUMMARY PATIENT: JUDY MIN UNIT: [id number] ADM DATE: 06/18/18 AGE: 87 : [birth year] SEX: M ROOM/BED: D.[facility] AUTHOR: BOLIVARDOC PHYSICIAN: REFERRING PHYSICIAN: MINH THOMAS MD DATE OF SERVICE: 06/21/18 Discharge Plan Patient Name: JUDY MIN Facility: [facility]:[place] : 1930 Planned Disposition: Home Anticipated Discharge Date: 06/20/18 Discharge Date: 06/20/2018 Expected LOS: 2 Initial Reviewer: [email or web address] Initial Review Date: 06/20/2018 Generated: 06/21/18 11:49 am Comments DCP- Discharge Planning Updated by [email or web address]: Olivia Quesada on 06/20/18 9:[address] Patient Name: JUDY MIN Admission Status: Elective Accout number: [id number] Admission Date: 06-18-2018 : 1930 Admission Diagnosis: Attending: MINH THOMAS Current LOS: 2 Anticipated DC Date: 06-20-2018 Planned Disposition: Home Primary Insurance: MEDICARE A & B Discharge Planning Comments: CM MET WITH PATIENT ABOUT DC PLANNING/NEEDS. STATES PLANS TO DC TO HOME TODAY WITH HIS GIRLFRIEND. BRENDA IS HERE TO TAKE HIM HOME WHEN DISCHARGED. PATIENT DENIES ANY NEEDS AT THIS TIME. CM WILL FOLLOW AND ASSIST NEEDED WITH DC PLANNING/NEEDS. IMM SIGNED AND EXPLAINED. COPY GIVEN TO PATIENT. Thermostat Machine Tender: Olivia Quesada DCPIA - Discharge Planning Initial Assessment Updated by [email or web address]: Olivia Quesada on 06/20/18 10:00 am * Is the patient Alert and Oriented? Yes * PCP WILLIAM * Pharmacy [facility] [address] * Preadmission Environment Home with Family * ADLs Independent * Equipment None * List name and contact numbers for known caregivers / representatives who currently or will assist patient after discharge: BRENDA [phone] * Community resources currently utilized None * Additional services required to return to the preadmission environment? No * Can the patient safely return to the preadmission environment? Yes * Has this patient been hospitalized within the prior 30 days at any hospital? No Coverage Notice Reviewer: [email or web address] - Oliviajacquelin Quesada Notice Issued Date-Time: 06/20/2018 9:57 Notice Type: IM Discharge Notice Notice Delivered To: Patient Relationship to Patient: Self Hvac Maintenance Technician Name: Delivery Method: HAND - Hand Delivered Alicia Days: Prior Verbal Notification: Recipient Understood Notice: Yes Recipient Signature: Yes Med Rec Note Co-signed by Attending: Coverage Notice Comment: Last DP export: 06/20/18 9:11 a Patient Name: JUDY MIN Page [phone] at 1049 All edits/amendments must be made on the electronic document DICTATION DATE: 06/21/18 1049 DIRECTOR CAMP: KARINA 06/21/18 1049 RPT#: [id number] DC DATE:06/20/18 STATUS: DIS IN [facility] [address] [place] [address] END OF REPORT
--- NOTE | ~2018-06-18 | MORECARE ---
CASE MANAGEMENT DISCHARGE SUMMARY PATIENT: JUDY MIN UNIT: [id number] ADM DATE: 06/18/18 AGE: 87 : [birth year] SEX: M ROOM/BED: D[facility] AUTHOR: BOLIVAR,DOC PHYSICIAN: REFERRING PHYSICIAN: MINH TOHMAS MD DATE OF SERVICE: 06/20/18 Discharge Plan Patient Name: JUDY MIN Facility: [facility]:[place] : 1930 Planned Disposition: Home Anticipated Discharge Date: 06/20/18 Discharge Date: Expected LOS: 2 Initial Reviewer: [email or web address] Initial Review Date: 06/20/2018 Generated: 06/20/18 11:11 am Comments DCP- Discharge Planning Updated by [email or web address]: Olivia Quesada on 06/20/18 9:[address] Patient Name: JUDY MIN Admission Status: Elective Accout number: [id number] Admission Date: 06-18-2018 : 1930 Admission Diagnosis: Attending: MINH THOMAS Current LOS: 2 Anticipated DC Date: 06-20-2018 Planned Disposition: Home Primary Insurance: MEDICARE A & B Discharge Planning Comments: CM MET WITH PATIENT ABOUT DC PLANNING/NEEDS. STATES PLANS TO DC TO HOME TODAY WITH HIS GIRLFRIEND. BRENDA IS HERE TO TAKE HIM HOME WHEN DISCHARGED. PATIENT DENIES ANY NEEDS AT THIS TIME. CM WILL FOLLOW AND ASSIST NEEDED WITH DC PLANNING/NEEDS. IMM SIGNED AND EXPLAINED. COPY GIVEN TO PATIENT. Email Campaign Manager: Olivia Quesada DCPIA - Discharge Planning Initial Assessment Updated by [email or web address]: Olivia Quesada on 06/20/18 10:00 am * Is the patient Alert and Oriented? Yes * PCP WILLIAM * Pharmacy [facility] [address] * Preadmission Environment Home with Family * ADLs Independent * Equipment None * List name and contact numbers for known caregivers / representatives who currently or will assist patient after discharge: BRENDA [phone] * Community resources currently utilized None * Additional services required to return to the preadmission environment? No * Can the patient safely return to the preadmission environment? Yes * Has this patient been hospitalized within the prior 30 days at any hospital? No Coverage Notice Reviewer: [id number] Edgard Quesada Notice Issued Date-Time: 06/20/2018 9:57 Notice Type: IM Discharge Notice Notice Delivered To: Patient Relationship to Patient: Self Riveter Helper Name: Delivery Method: HAND - Hand Delivered Alicia Days: Prior Verbal Notification: Recipient Understood Notice: Yes Recipient Signature: Yes Med Rec Note Co-signed by Attending: Coverage Notice Comment: Last DP export: 06/20/18 9:02 a Patient Name: JUDY MIN Page [phone] at 1011 All edits/amendments must be made on the electronic document DICTATION DATE: 06/20/18 1011 ETL SOFTWARE ENGINEER: KARINA 06/20/18 1011 RPT#: [id number] DC DATE: STATUS: ADM IN [facility] [address] [place] [address] END OF REPORT
--- NOTE | ~2018-06-18 | OP ---
PATIENT NAME: JUDY MIN MEDICAL RECORD: [id number] :[birth year] LOCATION:[facility].CV01 ADMISSION DATE:06/18/18 SURGEON: DEMETRIO THOMAS MD DATE OF OPERATION: 06/18/2018 SURGEON: Demetrio Thomas MD ANESTHESIA: General endotracheal, Dr. Maciel. OPERATION PERFORMED: Left carotid endarterectomy with patch angioplasty. PREOPERATIVE DIAGNOSIS: Severe left internal carotid artery stenosis. POSTOPERATIVE DIAGNOSIS: Severe left internal carotid artery stenosis. INDICATION FOR OPERATION: Severe left internal carotid artery stenosis. FINDINGS AT OPERATION: Severe left internal carotid artery stenosis. There were no EEG changes with clamping or unclamping of the carotid artery. ESTIMATED BLOOD LOSS: Less than 100 mL. DESCRIPTION OF PROCEDURE: After informed consent, adequate preoperative medication evaluation, the patient was brought to the operating room, placed on the table in the supine position. After induction of general endotracheal anesthesia and application of appropriate monitoring devices, the left neck was prepped and draped in sterile field, utilizing Betadine scrub, alcohol, and Betadine solution. Betadine-impregnated drape was also used. An oblique incision was made in the skin crease. Dissection was carried down the fascia. Hemostasis maintained with electrocautery. Facial vein was identified and divided. Utilizing sharp dissection, the common carotid, internal and external carotid arteries were dissected free of surrounding structures, protecting the neurological structures. The patient was given a calculated dose of heparin, after 3 minutes, clamps were applied. After 2 minutes, no EEG changes. Arteriotomy was made and extended with Adams scissors. Artery underwent endarterectomy sharply. Artery underwent extensive debridement and irrigation. Utilizing a vascular patch and running 7-0 Prolene suture, the arteriotomy was closed with patch angioplasty technique. All maneuvers to remove trapped air were performed. The clamps were removed sequentially. There were no EEG changes. The patient was given a calculated dose of protamine to reverse the heparin. Hemostasis was achieved. A #7 Ra-Gibson drain was left in the depths of the wound and brought out through the base of the neck. Neck was again irrigated. Instrument count and sponge count were correct times 2. Neck was closed in layers utilizing 3-0 Vicryl on the platysma, 5-0 subcuticular Monocryl on the skin. Sterile dressings were applied. The patient tolerated the procedure well and transferred to the CV ICU in satisfactory condition. TRANSINT:[id number] Voice Confirmation ID: [id number] DOCUMENT ID: [id number] OPERATIVE REPORT [id number] JUDY MIN EDWARD MD at 1305 CC: [id number] DICTATION DATE: 06/18/18 1053 DISPLAY DEPARTMENT MANAGER: 06/18/18 1149 DIS IN 06/20/18 [place] [id number]
--- NOTE | ~2018-06-18 | HP ---
PATIENT: JUDY MIN MEDICAL RECORD: [id number] ACCOUNT: [id number] LOCATION:[facility].CV01 : [birth year] ADMISSION DATE: 06/18/18 PCP: MINH THOMAS MD HISTORY AND PHYSICAL EXAMINATION JUDY Hunter (87yo, M) ID# [id number]. Date/Time06/13/2018 10:29IMMRN63/06/192Service Dept.NP_[facility] ClinicProviderEDOFE THOMAS MDInsuranceMed Primary: [place] Insurance # : [id number] Referring Provider Name : MICHEAL SARMIENTO Employer Name : RETIRED Med Secondary: [facility] (MEDICARE SUPPLEMENT) Insurance # : [id number] Referring Provider Name : MICHEAL SARMIENTO Employer Name : UNKNOWN Prescription: DSTPSDIR - Member is eligible. Prescription: ESI1 - Member is eligible. Chief Complaint Followup: Carotid artery stenosis following CS, here for CTA results Patient's Care Team Referring Provider (): MICHEAL SARMIENTO: [employer], [address] [place] [phone], , Fax [phone] Patient's Pharmacies [facility] ([facility]): [address] [place] [address] [place] [address], , Vitals BP:142/72 sitting L arm 06/13/2018 10:26 am 144/74 sitting R arm 06/13/2018 10:24 amBP Cuff Size:adult 06/13/2018 10:22 am adult 06/13/2018 10:24 amHR:52,reg,murmur 06/13/2018 10:26 amHt:6 ft 1 in 06/13/2018 10:08 amWt:180 lbs 06/13/2018 10:26 amNotes:four falls in the past weekend, gets dizzy and suddenly 'lights go out', and hits the floor 06/13/2018 10:27 amBMI:23.7 06/13/2018 10:26 amAllergies Reviewed Allergies FISH OILMedications Reviewed Medications ALPRAZolam 0.25 mg oyvxyd38/06/16 [facility]amLODIPine 10 mg xwuvda21/19/17 [facility]amLODIPine 5 mg /01/18 [facility]ammonium lactate 12 % topical cream08/09/17 [facility]calcitriol 0.25 mcg byrocgq35/09/18 [facility]cloNIDine HCl 0.1 mg etckrj52/31/18 [facility]clopidogrel 75 mg jposuf33/30/18 [facility]clotrimazole-betamethasone 1 %-0.05 % topical cream12/12/16 [facility]diazePAM 10 mg tlgaua17/10/17 [facility]diclofenac sodium 75 mg tablet,delayed qzcowzw61/10/16 [facility]doxycycline monohydrate 100 mg dcelcuc85/01/16 [facility]Durezol 0.05 % eye drops05/29/16 [facility]Florajen3 460 mg (7.5-6-1.5 bill. cell) imdmaft83/24/17 [facility]furosemide 40 mg nyfnbr42/22/16 [facility]gentamicin 0.1 % topical cream08/08/17 [facility]glimepiride 2 mg ahvhte38/06/18 [facility]glimepiride 4 mg ywknxg84/23/16 [facility] in2appshydrALAZINE 50 mg dzokou42/12/17 [facility] in2appshydroCHLOROthiazide 25 mg tdqzgo03/19/17 [facility]Jardiance 10 mg tablet Take 1 tablet(s) every day by oral route.03/02/16 enteredCindy BrownKlor-Con M20 mEq tablet,extended rrluqkx97/26/12 [facility]lisinopril 2.5 mg HISTORY AND PHYSICAL [id number] ROZEMA,JUDY L qxsyrk85/27/18 [facility]LORazepam 2 mg onvmtp56/20/16 [facility]losartan 50 mg ekpjkd91/07/17 [facility] in2appsLotemax 0.5 % eye gel drops07/19/16 [facility] in2appsmupirocin 2 % topical iqyoiuhy62/24/18 [facility]Riz[facility]amq[facility]izvo-lgxjjxoig-esarvsnw 3.5 mg/mL-10,000 unit/mL-0.1% eye drops06/26/17 [facility]ondansetron 4 mg disintegrating pizwey05/25/17 [facility] CenteroxyCODONE-acetaminophe n 5 mg-325 mg xngmuz22/21/16 [facility] Centerpantoprazole 40 mg tablet,delayed /19/17 [facility]potassium chloride ER 10 mEq capsule,extended luufdpt37/19/17 [facility]pravastatin 80 mg /17/18 [facility]prednisoLONE acetate 1 % eye drops,xmcabaxngl22/20/18 [facility]predniSONE 5 mg vpyjzz68/19/17 [facility] CenterrifAMPin 300 mg nxyinoz31/24/17 [facility] Centersilver sulfadiazine 1 % topical cream02/01/16 [facility] Centersucralfate 1 gram /03/17 [facility] Centersulfamethoxazole 800 mg-trimethoprim 160 mg loeudj56/24/17 [facility] Centertamsulosin 0.4 mg bsijcjm70/14/18 [facility]timolol maleate 0.5 % eye drops08/04/16 [facility] CentertraMADol 50 mg wcpoxj95/05/16 [facility]venlafaxine ER 75 mg capsule,extended release 24 hr04/25/18 [facility]Problems Reviewed Problems Carotid artery stenosis Pleural effusion Family History Reviewed Family History Mother- Malignant tumor of breast (onset age: 85) ( age: 96) - previously recorded as Cancer, BreastSocial History Reviewed Social History General Marital status: Smoking Status: Never smoker Alcohol intake: None Caffeine intake: Occasional Surgical History Reviewed Surgical History had fliud on lungs removed Past Medical History Reviewed Past Medical History High Blood Pressure: Y - Shortness of Breath: Y - CPAP Documents for Discussion N/A Screening None recorded. HPI Cerebral Vascular Disease Reported by patient. Quality: weakness; shade over vision (thinks retina related); falls Duration: has noted for months Context: dizzy spells and falls do not seem related to activity to the pt Severe left carotid stenosis ROS Patient reports vision change but reports no dry eyes and no irritation. He reports no fever, no night sweats, no significant weight gai n, no significant weight loss, HISTORY AND PHYSICAL [id number] ROZEMA,JUDY L and no exercise intolerance. He reports no difficulty hearing and no ear pain. He reports no frequent nosebleeds and no nose/sinus problems. He reports no sore throat, no bleeding gums, no snoring, no dry mouth, no mouth ulc e rs, no oral abnormalities, and no teeth problems. He reports no jugular vein distension and no swollen glands. He reports no chest pain, no arm pain on exertion, no shortness of breath when walking, no shortness of breath when lying down, no palpitations, and no known heart murmur. He reports no cough, no wheezing, no shortness of breath, and no coughing up blood. He reports no abdominal pain, no vomiting, normal appetite, no diarrhea, not vomiting blood, no nausea, and no constipation. He reports no incon t inence, no difficulty urinating, no hematuria, and no increased frequency. He reports no muscle aches, no muscle weakness, no arthralgias/joint pain, no back pain, and no swelling in the extremities. He reports no abnormal mole, no jaundice, and no rashes . He reports no loss of consciousness, no weakness, no numbness, no seizures, no dizziness, and no headaches. He reports no depression, no sleep disturbances, feeling safe in relationship, and no alcohol abuse. He reports no fatigue. He reports no swollen glands and no bruising. He reports no runny nose, no sinus pressure, no itching, no hives, and no frequent sneezing. ROS as noted in the HPI Physical Exam Patient is an 87-year-old male. Constitutional: General Appearance well nourished and developed and healthy-appearing. Level of Distress NAD. Ambulation ambulating normally. Cardiovascular: Apical Impulse not displaced or no thrill. Heart Auscultation normal s1 and s2; no murmurs, rubs, or gallops; and RRR. Arterial Pulses no abdominal aorta bruits, fem oral bruits, or popliteal bruits and 2+ bilateral, carotid 2+ bilateral, femoral 2+ bilateral, popliteal 2+ bilateral, and dorsalis pedis 2+ bilateral. Edema no edema or varicosities. Lungs: Repiratory Effort no dyspnea. Percussion no hyperresonance or du llness or flatness. Auscultation no wheezing, rhonchi, or rales / crackles and breathing sounds normal, good air movement, and CTA except as noted. Abdomen: Bowl Sounds normal. Inspection and Palpation no tenderness, guarding, masses, or rebound tendernes s and soft and non-distended. Liver non-tender and no hepatomegaly. Spleen non-tender and no splenomegaly. Hernia none palpable. Ears, Nose, Throat: Hearing grossly normal hearing. Nose no external nose lesion. Lips, Teeth, and Gums no mouth or lip ulcers . Oropharynx: moist mucous membranes. Musculoskeletal System: Gait And Stance normal gait and stance. Digits and Nails normal nails and no cyanosis. Joints, Bones, and Muscles normal strength and movement of all extremities. Neurologic: Cranial Nerves grossly intact. Reflexes DTRs 2+ bilaterally throughout. Sensation grossly intact. Lymph Nodes: Lymph Nodes no cervical LAD, supraclavicular LAD, axillary LAD, or inguinal LAD. Eyes: Lids and Conjunctivae no discharge or pallor and non-injected. Pupils PERRLA. Cornea grossly intact. EOM EOMI. Lens clear; decreased vision OS. Sclerae non-icteric. HISTORY AND PHYSICAL [id number] ROZEMA,JUDY L Neck: Neck no masses, enlarged lymph nodes, or carotid bruits and supple and trachea midline. Thyroid no enlargement or nodules and non-tender. Skin: Inspection and Palpation no rash, lesions, ulcers, jaundice, or abnormal nevi. Assessment / Plan Progression of disease left internal carotid artery 1. Carotid artery stenosis I65.29: Occlusion and stenosis of unspecified carotid artery CAROTID STENOSIS: CARE INSTRUCTIONS 2. Pleural effusion J90: Pleural effusion, not elsewhere classified Discussion Notes I have discussed the patient's disease process with him and his in detail as well as the alternative methods of treatment. We discussed left carotid endarterectomy including the expected benefits and risks which include bleeding, infection, stroke, , and imponderables. He understands all of the above and he would like to proceed with anamika nned surgery. Schedule left carotid endarterectomy next week Return to Office None recorded. MINH THOMAS MD at 1305 CC: [id number] DICTATION DATE: 06/13/18 1020 CREDIT DEPARTMENT MANAGER: DM 06/20/18 1232 DIS IN 06/20/18 [facility] [address] [facility] [place] [address]
--- NOTE | ~2018-06-18 | MORECARE ---
CASE MANAGEMENT DISCHARGE SUMMARY PATIENT: JUDY MIN UNIT: [id number] ADM DATE: 06/18/18 AGE: 87 : [birth year] SEX: M ROOM/BED: D[facility] AUTHOR: BOLIVAR,DOC PHYSICIAN: REFERRING PHYSICIAN: MINH THOMAS MD DATE OF SERVICE: 06/20/18 Discharge Plan Patient Name: JUDY MIN Facility: [facility]:[place] : 1930 Planned Disposition: Home Anticipated Discharge Date: 06/20/18 Discharge Date: Expected LOS: 2 Initial Reviewer: [email or web address] Initial Review Date: 06/20/2018 Generated: 06/20/18 11:01 am Comments DCP- Discharge Planning Updated by [email or web address]: Olivia Quesada on 06/20/18 9:[address] Patient Name: JUDY MIN Admission Status: Elective Accout number: [id number] Admission Date: 06-18-2018 : 1930 Admission Diagnosis: Attending: MINH THOMAS Current LOS: 2 Anticipated DC Date: 06-20-2018 Planned Disposition: Home Primary Insurance: MEDICARE A & B Discharge Planning Comments: CM MET WITH PATIENT ABOUT DC PLANNING/NEEDS. STATES PLANS TO DC TO HOME TODAY WITH HIS GIRLFRIEND. BRENDA IS HERE TO TAKE HIM HOME WHEN DISCHARGED. PATIENT DENIES ANY NEEDS AT THIS TIME. CM WILL FOLLOW AND ASSIST NEEDED WITH DC PLANNING/NEEDS. [place] Operator: Olivia Quesada DCPIA - Discharge Planning Initial Assessment Updated by [email or web address]: Olivia Quesada on 06/20/18 10:00 am * Is the patient Alert and Oriented? Yes * PCP WILLIAM * Pharmacy [facility] [address] * Preadmission Environment Home with Family * ADLs Independent * Equipment None * List name and contact numbers for known caregivers / representatives who currently or will assist patient after discharge: BRENDA [phone] * Community resources currently utilized None * Additional services required to return to the preadmission environment? No * Can the patient safely return to the preadmission environment? Yes * Has this patient been hospitalized within the prior 30 days at any hospital? No Coverage Notice Reviewer: [id number] - Olivia Quesada Notice Issued Date-Time: 06/20/2018 9:57 Notice Type: IM Discharge Notice Notice Delivered To: Patient Relationship to Patient: Self Old Coin Dealer Name: Delivery Method: HAND - Hand Delivered Alciia Days: Prior Verbal Notification: Recipient Understood Notice: Yes Recipient Signature: Yes Med Rec Note Co-signed by Attending: Coverage Notice Comment: Patient Name: JUDY MIN Page [id number] at 1002 All edits/amendments must be made on the electronic document DICTATION DATE: 06/20/18 1001 LITHOGRAPHIC PRESS FEEDER: KARINA 06/20/18 1001 RPT#: [id number] DC DATE: STATUS: ADM IN [facility] [address] [place] [address] END OF REPORT
[~2018-06-18 05:00] MED LIST changes: +LISINOPRIL2.5 MG PO; +STOOL SOFTENER100 M1 PO
[2018-06-19] VITALS (28 sets, daily range): BP systolic 99–160; BP diastolic 56–75
[2018-06-20] VITALS (12 sets, daily range): BP systolic 93–150; BP diastolic 45–72
[2018-06-20] MEDS ORDERED: PLAVIX75 MG PO (09:16)
== END 2018-06-20 11:06 | disposition home or self-care (01) | DRG 39 ==
LOC: D.CVICU 05:00 → D.SDCHOLD 05:00 → D.CVICU 08:29
PROVIDERS: Internal Medicine Cardiovascular Disease
PROC: 03UL0JZ Supplement Left Internal Carotid Artery with Synthetic Substitute, Open Approach (ICD-10-PCS; 2018-06-18)
PROC: 03CL0ZZ Extirpation of Matter from Left Internal Carotid Artery, Open Approach (ICD-10-PCS; principal; 2018-06-18 07:30)
DX: I65.22 Occlusion and stenosis of left carotid artery (principal); E11.22 Type 2 diabetes mellitus with diabetic chronic kidney disease; N18.3 Chronic kidney disease, stage 3 (moderate); R55 Syncope and collapse; I25.10 Atherosclerotic heart disease of native coronary artery without angina pectoris; R53.1 Weakness; I12.9 Hypertensive chronic kidney disease with stage 1 through stage 4 chronic kidney disease, or unspecified chronic kidney disease; H53.8 Other visual disturbances; I67.9 Cerebrovascular disease, unspecified

== ENCOUNTER 2018-07-28 14:00 | Inpatient (IN) | payer MEDICARE, OTHER ==
[2018-07-28] VITALS (11 sets, daily range): BP systolic 117–188; BP diastolic 74–92; BMI 24.7
[~2018-07-28] VITALS: Ht 182.9 cm; Wt 81.4 kg
[2018-07-28] MEDS ORDERED: LISINOPRIL10 MG PO (14:13)
[2018-07-28 14:53] LABS: BASOPHILS 0.2 % (0-2); EOSINOPHILS 0.9 % (0-7); HEMOGLOBIN 13.3 g/dL (13.5-17.5); IMMATURE GRANULOCYTES 0.3 % (0-5); LYMPHOCYTES 9.1 % (15-50); MCH 29.4 pg (26.0-34.0); MCHC 32.4 g/dL (31.0-37.0); MCV 90.5 fL (80.0-100.0); MEAN PLATELET VOLUME 9.4 fL (7.4-10.4); MONOCYTES 7.1 % (2-11); NEUTROPHILS 82.4 % (40-80); RBC 4.53 10x6/uL (4.20-6.10); RDW 14.4 % (11.5-14.5); WBC 8.9 10x3/uL (4.8-10.8)
[2018-07-28 14:54] LABS: PLATELET COUNT 231 10x3/uL (130-400)
[2018-07-28 15:09] LABS: ALBUMIN 3.1 g/dL (3.4-5.0); ALKALINE PHOSPHATASE 91 U/L (46-116); ALT (SGPT) 15 U/L (10-68); BILIRUBIN - TOTAL 0.56 mg/dL (0.2-1.3); CALC OSMOLALITY 285 mosm/kg (275-300); CALCIUM 8.5 mg/dL (8.5-10.1); CARBON DIOXIDE 30.3 mmol/L (21.0-32.0); CHLORIDE - SERUM 105 mmol/L (98-107); CREATININE - SERUM 2.3 mg/dL (0.6-1.3); GLUCOSE 125 mg/dL (74-106); POTASSIUM - SERUM 4.3 mmol/L (3.5-5.1); PROTEIN - SERUM 6.3 g/dL (6.4-8.2); SODIUM 141 mmol/L (136-145); UREA NITROGEN 24 mg/dL (7-18); eGFR NON AFRICAN AMERICAN 29 mL/min (90-120)
[2018-07-28 15:23] LABS: CKMB 0.9 U/L (0.0-3.6); CREATINE KINASE 51 UL (21-232); PRO BNP 2226 pg/mL (0-450)
[2018-07-28 15:24] LABS: TROPONIN-I 0.017 ng/mL (0.000-0.060)
[2018-07-28 15:55] LABS: INR 1.13 (0.85-1.17)
[2018-07-28 18:00] LABS: CKMB 1.1 U/L (0.0-3.6); CREATINE KINASE 52 UL (21-232); TROPONIN-I 0.026 ng/mL (0.000-0.060)
[2018-07-28 23:44] LABS: CKMB 1.1 U/L (0.0-3.6); CREATINE KINASE 54 UL (21-232); TROPONIN-I 0.036 ng/mL (0.000-0.060)
[2018-07-29 03:05] VITALS: BP 150/57
[2018-07-29 05:55] VITALS: BP 187/81
[2018-07-29 06:28] LABS: BASOPHILS 0.1 % (0-2); EOSINOPHILS 2.2 % (0-7); HEMATOCRIT 37.2 % (42.0-54.0); HEMOGLOBIN 11.8 g/dL (13.5-17.5); IMMATURE GRANULOCYTES 0.1 % (0-5); LYMPHOCYTES 17.5 % (15-50); MCH 28.8 pg (26.0-34.0); MCHC 31.7 g/dL (31.0-37.0); MCV 90.7 fL (80.0-100.0); MEAN PLATELET VOLUME 9.4 fL (7.4-10.4); MONOCYTES 7.1 % (2-11); PLATELET COUNT 210 10x3/uL (130-400); RDW 14.5 % (11.5-14.5); WBC 7.8 10x3/uL (4.8-10.8)
[2018-07-29 06:55] LABS: ALBUMIN 2.8 g/dL (3.4-5.0); ALKALINE PHOSPHATASE 81 U/L (46-116); ALT (SGPT) 12 U/L (10-68); CALC OSMOLALITY 288 mosm/kg (275-300); CALCIUM 8.4 mg/dL (8.5-10.1); CARBON DIOXIDE 29.2 mmol/L (21.0-32.0); CHLORIDE - SERUM 106 mmol/L (98-107); CKMB 0.8 U/L (0.0-3.6); CREATINE KINASE 55 UL (21-232); CREATININE - SERUM 2.1 mg/dL (0.6-1.3); GLUCOSE 91 mg/dL (74-106); POTASSIUM - SERUM 3.7 mmol/L (3.5-5.1); PROTEIN - SERUM 5.7 g/dL (6.4-8.2); SODIUM 142 mmol/L (136-145); TROPONIN-I 0.038 ng/mL (0.000-0.060); UREA NITROGEN 29 mg/dL (7-18); eGFR NON AFRICAN AMERICAN 32 mL/min (90-120)
[2018-07-29 08:01] VITALS: BP 183/89
[2018-07-29 11:23] VITALS: BP 187/79
[2018-07-29 15:46] VITALS: BP 198/97
[2018-07-29 17:00] VITALS: BP 182/82
[2018-07-29 18:15] LABS: % SATURATION 22 % (15-55); IRON 39 ug/dl (35-150); TOTAL IRON BIND CAPACITY 171 ug/dl (260-445); UNSAT IRON BIND CAPACITY 132 ug/dl (150-375)
[2018-07-30] VITALS: BP 201/67
[2018-07-30 04:00] VITALS: BP 176/88
[2018-07-30 04:54] LABS: BASOPHILS 0.1 % (0-2); EOSINOPHILS 2.3 % (0-7); HEMATOCRIT 37.8 % (42.0-54.0); HEMOGLOBIN 12.2 g/dL (13.5-17.5); IMMATURE GRANULOCYTES 0.1 % (0-5); LYMPHOCYTES 12.6 % (15-50); MCHC 32.3 g/dL (31.0-37.0); MEAN PLATELET VOLUME 9.5 fL (7.4-10.4); MONOCYTES 7.1 % (2-11); NEUTROPHILS 77.8 % (40-80); PLATELET COUNT 208 10x3/uL (130-400); RDW 14.3 % (11.5-14.5); WBC 7.9 10x3/uL (4.8-10.8)
[2018-07-30 05:16] LABS: BILIRUBIN - TOTAL 0.45 mg/dL (0.2-1.3); CALCIUM 8.3 mg/dL (8.5-10.1); CARBON DIOXIDE 28.6 mmol/L (21.0-32.0); CREATININE - SERUM 2.1 mg/dL (0.6-1.3); MAGNESIUM - SERUM 1.9 mg/dL (1.8-2.4); POTASSIUM - SERUM 3.6 mmol/L (3.5-5.1); PROTEIN - SERUM 6.1 g/dL (6.4-8.2)
[2018-07-30 09:10] VITALS: BP 191/86
[2018-07-30 11:53] VITALS: BP 135/69
--- NOTE | 2018-07-30 15:01 | EC ---
PATIENT:JUDY MIN DATE OF SERVICE: 07/28/18 SEX: M MEDICAL RECORD: [id number] DATE OF : [birth year] LOCATION:D.M2 D.212 AGE OF PATIENT: 87 ADMISSION DATE: 07/28/18 REFERRING PHYSICIAN: INTERPRETING PHYSICIAN: LISA DOWNS MD ECHOCARDIOGRAM REPORT ECHO CHARGES 4 ECHO COMPLETE Date: 07/29/18 CLINICAL DIAGNOSIS: TIA ECHOCARDIOGRAPHIC MEASUREMENTS (adult normal given) AC root (d.<3.7cm) 2.6 cm LV Septum d (<1.2 cm> 1.5 cm Valve Excursion 0.6 cm LV Septum (systole) 1.9 cm Left Atria (s.<4.0cm> 3.4 cm LVPW d(<1.2cm) 1.6 cm RV (d.<2.3cm) 2.8 cm LVPW (sytole) 2.4 cm LV diastole(<5.6CM) 5.8 cm MV E-F(>70mm/sec) cm LV systole 3.0 cm LVOT Diameter 1.6 cm MV exc.(>10mm) cm Est.ejection fraction (50-75%) % DOPPLER: LVIT cm/sec A 122 cm/sec E 53.0 cm/sec LA cm/sec RVSP 25.0 mmHg LVOT 121 cm/sec AOP1/2T m/s Asc. Ao 392 cm/sec RVOT 65.0 cm/sec RA cm/sec PA 143 cm/sec AV Gradient Peak 62.0 mmHg AV Mean 35.4 mmHg AV Area 0.3 cm MV Gradient Peak 7.1 mmHg MV Mean 1.4 mmHg MV Area cm COMMENTS: High School Professional: Jj WESTOE Math Coach: 3 Dr. Quezada TAPE# PACS Pericardial Effusion N DATE OF SERVICE: 07/29/2018 Adequate 2D echo, color flow, spectral Doppler, and M-mode LVH is present. LV internal dimensions are normal. Wall motion is normal. EF is greater than or equal to 55%. 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 Peak gradient of 60 mmHg putting this in the approaching severe range. Left atrium is normal. Mitral valve shows so prolapse. Mild MR. Right-sided chamber is grossly normal. Trace TR. ECHOCARDIOGRAM REPORT [id number] JUDY MIN TRANSINT:[id number] Voice Confirmation ID: [id number] DOCUMENT ID: [id number] LISA DOWNS MD at 1501 CC: [id number] DICTATION DATE: 07/29/18 1042 ENGINEER AUTOMATED EQUIPMENT: 07/29/18 1341 ADM IN [facility] [address] [place] [address]
[2018-07-30 15:52] VITALS: BP 123/60
[2018-07-30 19:00] VITALS: BP 180/86
[2018-07-31] VITALS: BP 156/74
[2018-07-31 04:00] VITALS: BP 152/55
[2018-07-31 06:02] LABS: BASOPHILS 0.1 % (0-2); EOSINOPHILS 2.5 % (0-7); HEMATOCRIT 35.3 % (42.0-54.0); HEMOGLOBIN 11.4 g/dL (13.5-17.5); IMMATURE GRANULOCYTES 0.1 % (0-5); LYMPHOCYTES 12.5 % (15-50); MCH 28.9 pg (26.0-34.0); MCHC 32.3 g/dL (31.0-37.0); MCV 89.6 fL (80.0-100.0); MEAN PLATELET VOLUME 9.6 fL (7.4-10.4); MONOCYTES 8.2 % (2-11); NEUTROPHILS 76.6 % (40-80); PLATELET COUNT 191 10x3/uL (130-400); RBC 3.94 10x6/uL (4.20-6.10); RDW 14.3 % (11.5-14.5); WBC 7.2 10x3/uL (4.8-10.8)
[2018-07-31 06:25] LABS: ALBUMIN 2.6 g/dL (3.4-5.0); BILIRUBIN - TOTAL 0.52 mg/dL (0.2-1.3); CALCIUM 8.1 mg/dL (8.5-10.1); CREATININE - SERUM 1.9 mg/dL (0.6-1.3); PROTEIN - SERUM 5.4 g/dL (6.4-8.2)
[2018-07-31 07:55] VITALS: BP 157/73
[2018-07-31 08:22] LABS: FOLATE (FOLIC ACID) - SERUM 4.4 ng/mL (>3.0)
[2018-07-31] MEDS ORDERED: PLAVIX75 MG PO (09:28)
[2018-07-31] MEDS ORDERED: NORVASC10 MG PO (09:28)
[2018-07-31] MEDS ORDERED: ZESTRIL40 MG PO (09:29)
[2018-07-31 11:14] VITALS: BP 166/65
[2018-07-31 15:33] VITALS: BP 107/68
--- NOTE | 2018-07-31 15:57 | MORECARE ---
CASE MANAGEMENT DISCHARGE SUMMARY PATIENT: JUDY MIN UNIT: [id number] ADM DATE: 07/28/18 AGE: 87 : [birth year] SEX: M ROOM/BED: D.2122 AUTHOR: ABBIE LUTZ PHYSICIAN: REFERRING PHYSICIAN: MIGUEL SHAH MD DATE OF SERVICE: 07/31/18 Discharge Plan Patient Name: JUDY MIN Facility: [facility]:[place] : 1930 Planned Disposition: Home Anticipated Discharge Date: 07/31/18 Discharge Date: Expected LOS: 3 Initial Reviewer: [email or web address] Initial Review Date: 07/31/2018 Generated: 07/31/18 4:57 pm Patient Name: JUDY MIN Page 23801 at 1557 All edits/amendments must be made on the electronic document DICTATION DATE: 07/31/18 1556 DUST MIXER: KARINA 07/31/18 155 RPT#: [id number] DC DATE: STATUS: ADM IN [facility] [address] [place] [address] END OF REPORT
--- NOTE | 2018-07-31 16:06 | MORECARE ---
CASE MANAGEMENT DISCHARGE SUMMARY PATIENT: JUDY MIN UNIT: [id number] ADM DATE: 07/28/18 AGE: 87 : [birth year] SEX: M ROOM/BED: D.3512 AUTHOR: ABBIE LUTZ PHYSICIAN: REFERRING PHYSICIAN: MIGUEL SHAH MD DATE OF SERVICE: 07/31/18 Discharge Plan Patient Name: JUDY MIN Facility: [facility]:[place] : 1930 Planned Disposition: Home Anticipated Discharge Date: 07/31/18 Discharge Date: Expected LOS: 3 Initial Reviewer: [email or web address] Initial Review Date: 07/31/2018 Generated: 07/31/18 5:06 pm Comments DCP- Discharge Planning Updated by [email or web address]: Minh Cash on 07/31/18 3:[address] Patient Name: JUDY MIN Admission Status: ER Accout number: [id number] Admission Date: 07-28-2018 : 1930 Admission Diagnosis:SHORTNESS OF BREATH Attending: MIGUEL SHAH Current LOS: 3 Anticipated DC Date: 07-31-2018 Planned Disposition: Home Primary Insurance: MEDICARE A & B Discharge Planning Comments: CM MET WITH PT AND SIGNIFICANT OTHER, BRENDA, IN ROOM TO DISCUSS DISCHARGE PLANNING AND NEEDS. JUDY MIN provided verbal consent to discuss current and ongoing needs with/in the presence of: GIRLFRIEND, BRENDA MACIAS. PT REPORTS LIVING AT HOME INDEPENDENTLY WITH HIS DAUGHTER AND PT'S GIRLFRIEND. PT HAS NO MEDICAL EQUIPMENT AND NO OUTSIDE SERVICES ASSISTING IN THE HOME. CM DISCUSSED AVAILABILITY OF HOME HEALTH, REHAB SERVICES AND MEDICAL EQUIPMENT. PT DENIES DISCHARGE NEEDS, REPORTS HIS GIRLFRIEND IS HERE TO COIN WRAPPING MACHINE OPERATOR FOR DISCHARGE HOME. IMPORTANT MESSAGE FROM MEDICARE PROVIDED AND EXPLAINED. SAFETY ASSISTANT NURSE NOTIFIED. Rotary Veneer Machine Operator: Minh Cash DCPIA - Discharge Planning Initial Assessment Updated by [id number]: Minh Cash on 07/31/18 3:57 pm * Is the patient Alert and Oriented? Yes * How many steps to enter\exit or inside your home? NONE * PCP DR. SARMIENTO * Pharm[facility] [address] [place] * Preadmission Environment Home with Family * ADLs Independent * Equipment None * Other Equipment NO MEDICAL EQUIPMENT PROVIDER PREFERENCE * List name and contact numbers for known caregivers / representatives who currently or will assist patient after discharge: BRENDA MACIAS, GIRLFRIEND, * Verbal permission to speak to the caregivers and representatives has been obtained from the patient. Yes * Community resources currently utilized None * Please name any agencies selected above. NONE * Additional services required to return to the preadmission environment? No * Can the patient safely return to the preadmission environment? Yes * Has this patient been hospitalized within the prior 30 days at any hospital? No Coverage Notice Reviewer: [id number] Edgard Cash Notice Issued Date-Time: 07/31/2018 10:20 Notice Type: IM Discharge Notice Notice Delivered To: Other Relationship to Patient: [employer] Name: BRENDA MACIAS Delivery Method: HAND - Hand Delivered Alicia Days: Prior Verbal Notification: Recipient Understood Notice: Yes Recipient Signature: Yes Med Rec Note Co-signed by Attending: Coverage Notice Comment: Last DP export: 07/31/18 2:57 p Patient Name: JUDY MIN Page 51363 at 1606 All edits/amendments must be made on the electronic document DICTATION DATE: 07/31/181604 FILLER ROOM ATTENDANT: KARINA 07/31/181604 RPT#: [id number] DC DATE: STATUS: ADM IN [facility] [address] [place] [address] END OF REPORT
[2018-07-31 20:00] VITALS: BP 167/61
[2018-08-01] VITALS (10 sets, daily range): BP systolic 79–205; BP diastolic 57–96
[2018-08-01 06:14] LABS: BASOPHILS 0.1 % (0-2); EOSINOPHILS 3.2 % (0-7); HEMATOCRIT 34.7 % (42.0-54.0); HEMOGLOBIN 11.4 g/dL (13.5-17.5); IMMATURE GRANULOCYTES 0.1 % (0-5); LYMPHOCYTES 15.1 % (15-50); MCH 29.2 pg (26.0-34.0); MCHC 32.9 g/dL (31.0-37.0); MEAN PLATELET VOLUME 9.5 fL (7.4-10.4); MONOCYTES 8.7 % (2-11); NEUTROPHILS 72.8 % (40-80); PLATELET COUNT 195 10x3/uL (130-400); RDW 14.2 % (11.5-14.5); WBC 7.3 10x3/uL (4.8-10.8)
[2018-08-01 06:58] LABS: ALBUMIN 2.6 g/dL (3.4-5.0); ANION GAP 12.9 mmol/L (8-16); BILIRUBIN - TOTAL 0.45 mg/dL (0.2-1.3); CARBON DIOXIDE 26.9 mmol/L (21.0-32.0); CREATININE - SERUM 1.8 mg/dL (0.6-1.3); MAGNESIUM - SERUM 1.9 mg/dL (1.8-2.4); POTASSIUM - SERUM 3.8 mmol/L (3.5-5.1); PROTEIN - SERUM 5.1 g/dL (6.4-8.2)
[2018-08-02] VITALS (8 sets, daily range): BP systolic 85–198; BP diastolic 38–96; Ht 182.9 cm; Wt 81.4 kg
[2018-08-02 06:19] LABS: BASOPHILS 0.1 % (0-2); EOSINOPHILS 0.7 % (0-7); HEMATOCRIT 34.6 % (42.0-54.0); HEMOGLOBIN 11.1 g/dL (13.5-17.5); IMMATURE GRANULOCYTES 0.2 % (0-5); LYMPHOCYTES 9.7 % (15-50); MCHC 32.1 g/dL (31.0-37.0); MCV 90.3 fL (80.0-100.0); MONOCYTES 9.1 % (2-11); NEUTROPHILS 80.2 % (40-80); PLATELET COUNT 220 10x3/uL (130-400); RBC 3.83 10x6/uL (4.20-6.10); RDW 14.6 % (11.5-14.5)
[2018-08-02 06:32] LABS: ALBUMIN 2.7 g/dL (3.4-5.0); ANION GAP 13.1 mmol/L (8-16); BILIRUBIN - TOTAL 0.59 mg/dL (0.2-1.3); CALCIUM 7.8 mg/dL (8.5-10.1); CARBON DIOXIDE 25.7 mmol/L (21.0-32.0); CREATININE - SERUM 1.8 mg/dL (0.6-1.3); MAGNESIUM - SERUM 1.8 mg/dL (1.8-2.4); POTASSIUM - SERUM 3.8 mmol/L (3.5-5.1); PROTEIN - SERUM 5.5 g/dL (6.4-8.2)
[2018-08-02 06:33] LABS: WBC 11.1 10x3/uL (4.8-10.8)
[2018-08-03] VITALS (7 sets, daily range): BP systolic 99–205; BP diastolic 51–90
[2018-08-03 06:20] LABS: CALCIUM 7.7 mg/dL (8.5-10.1); CARBON DIOXIDE 25.7 mmol/L (21.0-32.0); CREATININE - SERUM 1.6 mg/dL (0.6-1.3); POTASSIUM - SERUM 3.7 mmol/L (3.5-5.1)
[2018-08-03 06:32] LABS: BASOPHILS 0.1 % (0-2); EOSINOPHILS 1.6 % (0-7); HEMATOCRIT 31.7 % (42.0-54.0); HEMOGLOBIN 10.1 g/dL (13.5-17.5); IMMATURE GRANULOCYTES 0.1 % (0-5); LYMPHOCYTES 13.6 % (15-50); MCH 28.5 pg (26.0-34.0); MCHC 31.9 g/dL (31.0-37.0); MCV 89.5 fL (80.0-100.0); MEAN PLATELET VOLUME 9.7 fL (7.4-10.4); MONOCYTES 10.8 % (2-11); NEUTROPHILS 73.8 % (40-80); PLATELET COUNT 204 10x3/uL (130-400); RBC 3.54 10x6/uL (4.20-6.10); RDW 14.3 % (11.5-14.5)
[2018-08-04 05:13] LABS: BASOPHILS 0.1 % (0-2); EOSINOPHILS 2.8 % (0-7); HEMATOCRIT 33.1 % (42.0-54.0); HEMOGLOBIN 10.6 g/dL (13.5-17.5); IMMATURE GRANULOCYTES 0.1 % (0-5); LYMPHOCYTES 13.7 % (15-50); MCH 29.3 pg (26.0-34.0); MCV 91.4 fL (80.0-100.0); MEAN PLATELET VOLUME 9.5 fL (7.4-10.4); NEUTROPHILS 71.3 % (40-80); PLATELET COUNT 187 10x3/uL (130-400); RBC 3.62 10x6/uL (4.20-6.10); RDW 14.4 % (11.5-14.5); WBC 7.2 10x3/uL (4.8-10.8)
[2018-08-04 05:23] LABS: ANION GAP 12.6 mmol/L (8-16); CALCIUM 7.9 mg/dL (8.5-10.1); CARBON DIOXIDE 26.4 mmol/L (21.0-32.0); CREATININE - SERUM 1.4 mg/dL (0.6-1.3)
[2018-08-04 09:15] VITALS: BP 134/83
[2018-08-04 14:16] VITALS: BP 157/54
[2018-08-04 20:30] VITALS: BP 198/76
[2018-08-05 04:30] VITALS: BP 131/65
[2018-08-05 05:45] LABS: BASOPHILS 0.3 % (0-2); HEMATOCRIT 30.9 % (42.0-54.0); HEMOGLOBIN 10.2 g/dL (13.5-17.5); IMMATURE GRANULOCYTES 0.1 % (0-5); MCH 29.8 pg (26.0-34.0); MCV 90.4 fL (80.0-100.0); MEAN PLATELET VOLUME 9.7 fL (7.4-10.4); MONOCYTES 10.7 % (2-11); NEUTROPHILS 71.9 % (40-80); PLATELET COUNT 220 10x3/uL (130-400); RBC 3.42 10x6/uL (4.20-6.10); RDW 14.2 % (11.5-14.5); WBC 7.8 10x3/uL (4.8-10.8)
[2018-08-05 06:04] LABS: ANION GAP 11.7 mmol/L (8-16); CREATININE - SERUM 1.5 mg/dL (0.6-1.3); POTASSIUM - SERUM 3.7 mmol/L (3.5-5.1)
[2018-08-05 10:14] VITALS: BP 130/75
[2018-08-05 19:00] VITALS: BP 173/89
[2018-08-06 04:00] VITALS: BP 125/73
[2018-08-06 06:29] LABS: BASOPHILS 0.1 % (0-2); EOSINOPHILS 2.3 % (0-7); HEMATOCRIT 32.4 % (42.0-54.0); HEMOGLOBIN 10.4 g/dL (13.5-17.5); IMMATURE GRANULOCYTES 0.1 % (0-5); LYMPHOCYTES 12.1 % (15-50); MCH 28.8 pg (26.0-34.0); MCHC 32.1 g/dL (31.0-37.0); MCV 89.8 fL (80.0-100.0); MEAN PLATELET VOLUME 9.6 fL (7.4-10.4); MONOCYTES 9.9 % (2-11); NEUTROPHILS 75.5 % (40-80); PLATELET COUNT 229 10x3/uL (130-400); RBC 3.61 10x6/uL (4.20-6.10); RDW 14.1 % (11.5-14.5); WBC 8.1 10x3/uL (4.8-10.8)
[2018-08-06 06:46] LABS: ANION GAP 11.5 mmol/L (8-16); CALCIUM 8.2 mg/dL (8.5-10.1); CARBON DIOXIDE 27.2 mmol/L (21.0-32.0); CREATININE - SERUM 1.5 mg/dL (0.6-1.3); POTASSIUM - SERUM 3.7 mmol/L (3.5-5.1)
[2018-08-06 09:47] VITALS: BP 153/80
[2018-08-06] MEDS ORDERED: ELIQUIS2.5 MG PO (12:49)
[2018-08-06] MEDS ORDERED: ELIQUIS5 MG PO (12:49)
[2018-08-06] MEDS ORDERED: NORVASC10 MG PO (12:49)
--- NOTE | 2018-08-06 13:45 | MORECARE ---
CASE MANAGEMENT DISCHARGE SUMMARY PATIENT: JUDY MIN UNIT: [id number] ADM DATE: 07/28/18 AGE: 87 : [birth year] SEX: M ROOM/BED: D.3672 AUTHOR: ABBIE LUTZ PHYSICIAN: REFERRING PHYSICIAN: MIGUEL SHAH MD DATE OF SERVICE: 08/06/18 Discharge Plan Patient Name: JUDY MIN Facility: [facility]:[place] : 1930 Planned Disposition: Home Anticipated Discharge Date: 08/06/18 Discharge Date: Expected LOS: 9 Initial Reviewer: [id number] Initial Review Date: 07/31/2018 Generated: 08/06/18 2:45 pm Comments DCP- Discharge Planning Updated by [id number]: Minh Cash on 07/31/18 3:[address] Patient Name: JUDY MIN Admission Status: ER Accout number: [id number] Admission Date: 07-28-2018 : 1930 Admission Diagnosis:SHORTNESS OF BREATH Attending: MIGUEL SHAH Current LOS: 3 Anticipated DC Date: 07-31-2018 Planned Disposition: Home Primary Insurance: MEDICARE A & B Discharge Planning Comments: CM MET WITH PT AND SIGNIFICANT OTHER, BRENDA, IN ROOM TO DISCUSS DISCHARGE PLANNING AND NEEDS. JUDY MIN provided verbal consent to discuss current and ongoing needs with/in the presence of: GIRLFRIEND, BRENDA MACIAS. PT REPORTS LIVING AT HOME INDEPENDENTLY WITH HIS DAUGHTER AND PT'S GIRLFRIEND. PT HAS NO MEDICAL EQUIPMENT AND NO OUTSIDE SERVICES ASSISTING IN THE HOME. CM DISCUSSED AVAILABILITY OF HOME HEALTH, REHAB SERVICES AND MEDICAL EQUIPMENT. PT DENIES DISCHARGE NEEDS, REPORTS HIS GIRLFRIEND IS HERE TO PLANT PROTECTION GUARD FOR DISCHARGE HOME. IMPORTANT MESSAGE FROM MEDICARE PROVIDED AND EXPLAINED. SAP MOBILITY ARCHITECT NURSE NOTIFIED. Sewing Machine Adjuster: Minh Cash DCPIA - Discharge Planning Initial Assessment Updated by [id number]: Minh Cash on 07/31/18 3:57 pm * Is the patient Alert and Oriented? Yes * How many steps to enter\exit or inside your home? NONE * PCP DR. SARMIENTO * Pharmacy [facility] [address] * Preadmission Environment Home with Family * ADLs Independent * Equipment None * Other Equipment NO MEDICAL EQUIPMENT PROVIDER PREFERENCE * List name and contact numbers for known caregivers / representatives who currently or will assist patient after discharge: BRENDA MACIAS, GIRLFRIEND, * Verbal permission to speak to the caregivers and representatives has been obtained from the patient. Yes * Community resources currently utilized None * Please name any agencies selected above. NONE * Additional services required to return to the preadmission environment? No * Can the patient safely return to the preadmission environment? Yes * Has this patient been hospitalized within the prior 30 days at any hospital? No Coverage Notice Reviewer: TESHA Cash Notice Issued Date-Time: 07/31/2018 10:20 Notice Type: IM Discharge Notice Notice Delivered To: Other Relationship to Patient: Life Partner Presales Engineer Name: BRENDA MACIAS Delivery Method: HAND - Hand Delivered Alicia Days: Prior Verbal Notification: Recipient Understood Notice: Yes Recipient Signature: Yes Med Rec Note Co-signed by Attending: Coverage Notice Comment: Reviewer: TESHA Cash Notice Issued Date-Time: 08/06/2018 12:50 Notice Type: IM Discharge Notice Notice Delivered To: Patient Relationship to Patient: Presales Engineer Name: Delivery Method: HAND - Hand Delivered Alicia Days: Prior Verbal Notification: Recipient Understood Notice: Yes Recipient Signature: Yes Med Rec Note Co-signed by Attending: Coverage Notice Comment: Last DP export: 07/31/18 3:06 p Patient Name: JDUY MIN Page 93784 at 1345 All edits/amendments must be made on the electronic document DICTATION DATE: 08/06/18 1344 DURALUMIN METALWORKER: KARINA 08/06/18 1344 RPT#: [id number] DC DATE: STATUS: ADM IN [facility] [address] [place] [address] END OF REPORT
--- NOTE | 2018-08-06 13:59 | MORECARE ---
CASE MANAGEMENT DISCHARGE SUMMARY PATIENT: JUDY MIN UNIT: [id number] ADM DATE: 07/28/18 AGE: 87 : [birth year] SEX: M ROOM/BED: D.8622 AUTHOR: ABBIE LUTZ PHYSICIAN: REFERRING PHYSICIAN: MIGUEL SHAH MD DATE OF SERVICE: 08/06/18 Discharge Plan Patient Name: JUDY MIN Facility: [facility]:[place] : 1930 Planned Disposition: Home Anticipated Discharge Date: 08/06/18 Discharge Date: Expected LOS: 9 Initial Reviewer: [id number] Initial Review Date: 07/31/2018 Generated: 08/06/18 2:59 pm Comments DCP- Discharge Planning Updated by [id number]: Minh Cash on 07/31/18 3:[address] Patient Name: JUDY MIN Admission Status: ER Accout number: [id number] Admission Date: 07-28-2018 : 1930 Admission Diagnosis:SHORTNESS OF BREATH Attending: MIGUEL SHAH Current LOS: 3 Anticipated DC Date: 07-31-2018 Planned Disposition: Home Primary Insurance: MEDICARE A & B Discharge Planning Comments: CM MET WITH PT AND SIGNIFICANT OTHER, BRENDA, IN ROOM TO DISCUSS DISCHARGE PLANNING AND NEEDS. JUDY MIN provided verbal consent to discuss current and ongoing needs with/in the presence of: GIRLFRIEND, BRENDA MACIAS. PT REPORTS LIVING AT HOME INDEPENDENTLY WITH HIS DAUGHTER AND PT'S GIRLFRIEND. PT HAS NO MEDICAL EQUIPMENT AND NO OUTSIDE SERVICES ASSISTING IN THE HOME. CM DISCUSSED AVAILABILITY OF HOME HEALTH, REHAB SERVICES AND MEDICAL EQUIPMENT. PT DENIES DISCHARGE NEEDS, REPORTS HIS GIRLFRIEND IS HERE TO FISH NET STRINGER FOR DISCHARGE HOME. IMPORTANT MESSAGE FROM MEDICARE PROVIDED AND EXPLAINED. CENTRAL SUPPLY MANAGER NURSE NOTIFIED. Retread Mold Operator: Minh Cash DCPIA - Discharge Planning Initial Assessment Updated by [id number]: Minh Cash on 07/31/18 3:57 pm * Is the patient Alert and Oriented? Yes * How many steps to enter\exit or inside your home? NONE * PCP DR. SARMIENTO * [facility] [address] * Preadmission Environment Home with Family * ADLs Independent * Equipment None * Other Equipment NO MEDICAL EQUIPMENT PROVIDER PREFERENCE * List name and contact numbers for known caregivers / representatives who currently or will assist patient after discharge: BRENDA MACIAS, GIRLFRIEND, * Verbal permission to speak to the caregivers and representatives has been obtained from the patient. Yes * Community resources currently utilized None * Please name any agencies selected above. NONE * Additional services required to return to the preadmission environment? No * Can the patient safely return to the preadmission environment? Yes * Has this patient been hospitalized within the prior 30 days at any hospital? No External Providers External Provider: Reji Barros Next Contact Date: 07/30/2018 Service Request Date: Service Type: Resolution: Reviewer: Comments: Coverage Notice Reviewer: [id number] Cash Notice Issued Date-Time: 07/31/2018 10:20 Notice Type: IM Discharge Notice Notice Delivered To: Other Relationship to Patient: Life Partner Osteopathic Resident Name: BRENDA MACIAS Delivery Method: HAND - Hand Delivered Alicia Days: Prior Verbal Notification: Recipient Understood Notice: Yes Recipient Signature: Yes Med Rec Note Co-signed by Attending: Coverage Notice Comment: Reviewer: TESHA Cash Notice Issued Date-Time: 08/06/2018 12:50 Notice Type: IM Discharge Notice Notice Delivered To: Patient Relationship to Patient: Osteopathic Resident Name: Delivery Method: HAND - Hand Delivered Alicia Days: Prior Verbal Notification: Recipient Understood Notice: Yes Recipient Signature: Yes Med Rec Note Co-signed by Attending: Coverage Notice Comment: Last DP export: 08/06/18 12:45 p Patient Name: JUDY MIN Page 76080 at 1359 All edits/amendments must be made on the electronic document DICTATION DATE: 08/06/18 1359 ARTIST SCIENTIFIC: KARINA 08/06/18 1359 RPT#: [id number] OK DATE: STATUS: ADM IN [facility] [address] [place] [address] END OF REPORT
--- NOTE | 2018-08-06 14:06 | MORECARE ---
CASE MANAGEMENT DISCHARGE SUMMARY PATIENT: JUDY MIN UNIT: [id number] ADM DATE: 07/28/18 AGE: 87 : [birth year] SEX: M ROOM/BED: D.2122 AUTHOR: ABBIE LUTZ PHYSICIAN: REFERRING PHYSICIAN: MIGUEL SHAH MD DATE OF SERVICE: 08/06/18 Discharge Plan Patient Name: JUDY MIN Facility: [facility]:[place] : 1930 Planned Disposition: Home Anticipated Discharge Date: 08/06/18 Discharge Date: Expected LOS: 9 Initial Reviewer: TESHA Initial Review Date: 07/31/2018 Generated: 08/06/18 3:06 pm Comments DCP- Discharge Planning Updated by [email or web address]: Minh Cash on 08/06/18 1:[address] Patient Name: JUDY MIN Encounter No: [id number] : 1930 Primary Insurance: MEDICARE A & B Anticipated DC Date: 08-06-2018 Planned Disposition: Home WITH OUTPATIENT PHYSICAL THERAPY SERVICES External Planned Provider: [facility] DCP follow-up note: CM MET WITH PT IN ROOM TO DISCUSS DISCHARGE NEEDS AND PLANNING. CM DISCUSSED AVAILABILITY OF HOME HEALTH, REHAB SERVICES AND MEDICAL EQUIPMENT. PT REPORTS HE WANTS THERAPY AT [facility] OUTPAT[facility] WHERE HE WILL STAY AT HOME AND DRIVE TO THE CENTER ABOUT TWO DAYS PER WEEK. PT REPORTS HAVING "SOMEONE" TO TRANSPORT HOME AT DISCHARGE TODAY. IMPORTANT MESSAGE FROM MEDICARE PROVIDED AND EXPLAINED. CM CALLED [facility], , SPOKE TO RACHEL WHO REPORTS THEY HAVEN'T SEEN PT IN A COUPLE OF YEARS BUT WILL PROCESS FOR OUTPATIENT THERAPY SERVICES WITH REFERRAL AND CONTACT PT TO MAKE ARRANGEMENTS. CM FAXED ORDER AND REFERRAL FOR OUTPATIENT THERAPY TO [facility] AT [phone]. [place] Frost DCP- Discharge Planning Updated by [id number]: Minh Cash on 07/31/18 3:[address] Patient Name: JUDY MIN Admission Status: ER Accout number: [id number] Admission Date: 07-28-2018 : 1930 Admission Diagnosis:SHORTNESS OF BREATH Attending: MIGUEL SHAH Current LOS: 3 Anticipated DC Date: 07-31-2018 Planned Disposition: Home Primary Insurance: MEDICARE A & B Discharge Planning Comments: CM MET WITH PT AND SIGNIFICANT OTHER, BRENDA, IN ROOM TO DISCUSS DISCHARGE PLANNING AND NEEDS. JUDY MIN provided verbal consent to discuss current and ongoing needs with/in the presence of: GIRLFRIEND, BRENDA MACIAS. PT REPORTS LIVING AT HOME INDEPENDENTLY WITH HIS DAUGHTER AND PT'S GIRLFRIEND. PT HAS NO MEDICAL EQUIPMENT AND NO OUTSIDE SERVICES ASSISTING IN THE HOME. CM DISCUSSED AVAILABILITY OF HOME HEALTH, REHAB SERVICES AND MEDICAL EQUIPMENT. PT DENIES DISCHARGE NEEDS, REPORTS HIS GIRLFRIEND IS HERE TO PULP MIXER FOR DISCHARGE HOME. IMPORTANT MESSAGE FROM MEDICARE PROVIDED AND EXPLAINED. DIRECTOR OF SPORTS PERFORMANCE NURSE NOTIFIED. Consulting Nurse: Minh Cash DCPIA - Discharge Planning Initial Assessment Updated by [email or web address]: Minh Cash on 07/31/18 3:57 pm * Is the patient Alert and Oriented? Yes * How many steps to enter\\exit or inside your home? NONE * PCP DR. SARMIENTO * Pharmacy [facility] ON [address] * Preadmission Environment Home with Family * ADLs Independent * Equipment None * Other Equipment NO MEDICAL EQUIPMENT PROVIDER PREFERENCE * List name and contact numbers for known caregivers / representatives who currently or will assist patient after discharge: BRENDA MACIAS, LOUISIENJuliann, * Verbal permission to speak to the caregivers and representatives has been obtained from the patient. Yes * Community resources currently utilized None * Please name any agencies selected above. NONE * Additional services required to return to the preadmission environment? No * Can the patient safely return to the preadmission environment? Yes * Has this patient been hospitalized within the prior 30 days at any hospital? No Coverage Notice Reviewer: [id number] Edgard Cash Notice Issued Date-Time: 07/31/2018 10:20 Notice Type: IM Discharge Notice Notice Delivered To: Other Relationship to Patient: Life Partner Sales And Marketing Engineer Name: BRENDA MACIAS Delivery Method: HAND - Hand Delivered Alicia Days: Prior Verbal Notification: Recipient Understood Notice: Yes Recipient Signature: Yes Med Rec Note Co-signed by Attending: Coverage Notice Comment: Reviewer: [id number] Edgard Cash Notice Issued Date-Time: 08/06/2018 12:50 Notice Type: IM Discharge Notice Notice Delivered To: Patient Relationship to Patient: Sales And Marketing Engineer Name: Delivery Method: HAND - Hand Delivered Alicia Days: Prior Verbal Notification: Recipient Understood Notice: Yes Recipient Signature: Yes Med Rec Note Co-signed by Attending: Coverage Notice Comment: Last DP export: 08/06/18 12:59 p Patient Name: JUDY MIN Page 26882 at 1406 All edits/amendments must be made on the electronic document DICTATION DATE: 08/06/181404 SENIOR IOS DEVELOPER: KARINA 08/06/181404 RPT#: [id number] DC DATE: STATUS: ADM IN [facility] [address] [place] [address] END OF REPORT
== END 2018-08-06 17:31 | disposition home or self-care (01) | DRG 65 ==
LOC: D.ER 14:00 → D.M2 16:58 → D.EDHOLD 16:58 → D.M2 18:26
PROVIDERS: Emergency Medicine; Internal Medicine Nephrology; ADMIT Family Medicine
DX: I63.239 Cerebral infarction due to unspecified occlusion or stenosis of unspecified carotid artery (principal); N17.9 Acute kidney failure, unspecified; I49.5 Sick sinus syndrome; I25.10 Atherosclerotic heart disease of native coronary artery without angina pectoris; E11.65 Type 2 diabetes mellitus with hyperglycemia; E11.22 Type 2 diabetes mellitus with diabetic chronic kidney disease; I12.9 Hypertensive chronic kidney disease with stage 1 through stage 4 chronic kidney disease, or unspecified chronic kidney disease; N18.3 Chronic kidney disease, stage 3 (moderate); I48.91 Unspecified atrial fibrillation; I35.0 Nonrheumatic aortic (valve) stenosis; I95.1 Orthostatic hypotension; M25.571 Pain in right ankle and joints of right foot; W18.2XXA Fall in (into) shower or empty bathtub, initial encounter; Y92.231 Patient bathroom in hospital as the place of occurrence of the external cause; M71.21 Synovial cyst of popliteal space [Baker], right knee; Z86.73 Personal history of transient ischemic attack (TIA), and cerebral infarction without residual deficits

== ENCOUNTER 2018-09-02 10:40 | Emergency (ER) | payer MEDICARE, OTHER ==
[~2018-09-02] VITALS: Ht 182.9 cm; Wt 77.3 kg
[~2018-09-02 10:40] MED LIST changes: +ELIQUIS2.5 MG PO; +ELIQUIS5 MG PO; +LISINOPRIL10 MG PO; +ZESTRIL40 MG PO
[2018-09-02 10:41] VITALS: Ht 182.9 cm; Wt 77.3 kg
[2018-09-02] MEDS ORDERED: CHRONULAC30 ML PO (13:29)
[2018-09-02 13:55] VITALS: BP 134/93
== END 2018-09-02 13:40 | disposition home or self-care (01) ==
LOC: D.ER 10:40
DX: K62.89 Other specified diseases of anus and rectum (principal); K59.00 Constipation, unspecified; I12.9 Hypertensive chronic kidney disease with stage 1 through stage 4 chronic kidney disease, or unspecified chronic kidney disease; N18.9 Chronic kidney disease, unspecified